=== PATIENT | female | born 1950 | race Caucasian/White ===

== ENCOUNTER 2024-08-17 09:09 | Outpatient (REF) | payer MEDICARE, SELFPAY ==
--- NOTE | ~2024-08-17 | XR_ITS ---
EXAMINATION: XR SHOULDER, RIGHT CLINICAL INFORMATION: M25.511 - Pain in right shoulder COMPARISON: None available. TECHNIQUE: Two views of the right shoulder. FINDINGS: No acute cortical disruption or malalignment. No lytic or blastic lesions. XR/XR shoulder RT min 2V IMPRESSION: No acute fracture or dislocation. Electronically signed by: Charles Chaudhary MD 08/17/2024 12:47 PM EDT
--- OUTSIDE RECORDS SUMMARY | 2024-08-18 09:46 | XMS_ITS | Data Portability ---
Author Organization [place] - [facility], [facility] Address [address] [place] [address] Care Team Providers Care Stabber Name Role Phone DAVEY FLORES Primary Care Provider LYNNE MCKEON Primary Care Provider Assessment Encounter Date Assessment Date Assessment LastModified by Organization Details LastModified Time 04/17/2021 04/17/2021 Bilateral hip greater trochanteric bursitis Bilateral bursa corticosteroid injections Weightbearing as tolerated HEP, no real improvement with PT Follow-up PRN In total, reviewing the patient's records, reviewing imaging, examining and evaluating the patient, coordinating her care encompass 31 minutes. [email or web address] Not available 04/17/2021 11:56:09 07/17/2021 07/17/2021 Bilateral hip greater trochanteric bursitis Bilateral bursa corticosteroid injections Weightbearing as tolerated HEP, no real improvement with PT Follow-up in 3 mos In total, reviewing the patient's records, reviewing imaging, examining and evaluating the patient, coordinating her care encompass 31 minutes. [email or web address] Not available 07/17/2021 11:33:52 10/02/2021 10/02/2021 Bilateral hip greater trochanteric bursitis L Hip GWYN XR L hip, [facility], 09/25/21 Mild osteoarthritic changes of femoroacetabular joint, no fracture, no dislocation, no osseous abnormalities. I personally interpreted the imaging and reviewed the radiology report Bilateral bursa corticosteroid injections Weightbearing as tolerated HEP, no real improvement with PT Follow-up in 3 mos If no improvement in impingement symptoms over next two months, instructed to follow-up with Dr. Brown for further evaluation. She may continue returning to [place] for bilateral GT bursa injections. [email or web address] Not available 10/02/2021 11:39:42 11/21/2021 11/21/2021 The patient presents to the office today with symptoms consistent with left hip trochanteric bursitis. We offered and proceeded with injecting hip troch bursa which the patient tolerated well. We will see the patient back in the office as needed. If there are any problems or concerns, the patient may contact our office She may return for a hip joint injection with Dr. Villalta if her pain continues [email or web address] Not available 11/21/2021 13:26:01 11/27/2021 11/27/2021 Hip osteoarthritis. Imaging and\or evaluation reviewed. Progressive treatment plan initiated conservatively of medication \ therapy \ surgery as appropriate. Not available 11/27/2021 14:57:37 Plan of Treatment Reminders Order Date Submit Date Provider Last Modified By Organization Details Last Modified Time Details Appointments None record ed. Lab None record ed. Referral None record ed. Procedures None record ed. Surgeries None record ed. Imaging None record ed. Medication Orders None record ed. Patient TargetsNo targets recorded. Patient Instructions Encounter Date Encounter Id Patient Instructions Last Modified By Organization Details Last Modified Time 04/17/2021 [id number] hip pain: care instructions Not available 04/17/2021 12:47:36 learning about healthy weight [email or web address] Not available 04/17/2021 12:47:36 07/17/2021 [id number] hip pain: care instructions [email or web address] Not available 07/17/2021 11:33:53 learning about healthy weight [email or web address] Not available 07/17/2021 11:33:53 10/02/2021 [id number] hip pain: care instructions [email or web address] Not available 10/02/2021 11:40:10 learning about healthy weight [email or web address] Not available 10/02/2021 11:40:10 11/27/2021 [id number] hip arthritis: care instructions Not available 11/27/2021 14:58:13 osteoarthritis: care instructions Not available 11/27/2021 14:58:13 Reason for Referral None Reported. Problems Name Problem SNOMED Code Status Onset Date Resolution Date Notes Provider Name and Address Organization Details Recorded Time Hip pain 78777403 Active Abigail cunningham, [place] - [facility] 07/20/2019 15:27:10 Problem Notes None recorded. Procedures Surgical History Date Name Laterality Status Provider Name and Address Organization Details Recorded Time [facility] Corticosteroid Injection [place] [address], [place], [address], [facility] 11/27/2021 14:57:28 [facility] Corticosteroid Injection General completed Vinod Brown D.O. [address], [place], [address] 11/21/2021 13:23:54 [facility] Advance Care Planning completed Santiago Vazquez [facility] 11/21/2021 13:15:59 [facility] Corticosteroid Injection General completed GIOVANNA FARRAR [address], [place], [address], [facility] 10/02/2021 11:40:35 [facility] Advance Care Planning completed Yamilex Cole [facility] 10/02/2021 10:50:37 [facility] Corticosteroid Injection General completed GIOVANNA FARRAR [address], [place], [address], [facility] 07/17/2021 11:33:26 022 [facility] Advance Care Planning completed Yamilex Cole [facility] 07/17/2021 11:22:32 [facility] Corticosteroid Injection [place] [address], [place], [address], [facility] 04/19/2021 10:30:39 [facility] Advance Care Planning completed Sana Bermudez [facility] 04/17/2021 11:38:42 09/01/2 021 [facility] Corticosteroid Injection [place] [address], [place], [address], [facility] 01/09/2021 10:21:18 021 [facility] Corticosteroid Injection [place] [address],[place], [address] 09/28/2020 11:45:59 021 [facility] Corticosteroid Injection [place] [address], [place], [address] 07/06/2020 11:59:45 020 [facility] Corticosteroid Injection [place] [address],[place], [address] 04/03/2020 13:16:56 020 [facility] Corticosteroid Injection [place] [address],[place], [address], [facility] 07/20/2019 14:07:41 Appendectomy completed Not Available [employer] 12:55:38 Orthopedic Surgery completed Not Available [employer] 11/21/2021 12:55:38 Gallbladder Surgery completed Not Available [employer] 11/21/2021 12:55:38 Hysterectomy completed Not Available [employer] 12:55:38 cholecystectomy completed Abigail Narvaez [facility] 07/20/2019 15:47:32 Imaging Results None recorded. Procedure Notes None recorded. Medical Equipment None Reported. Allergies Allergen ID Allergen Name Allergen Category Reaction Reaction Severity Criticality Documentation Date Start Date Code Code System Note Provider Name and Address Organization Details Recorded Time 662468 hydrocodo ne Not available rash Not available Not available 07/20/2019 5489 RxNorm Not Available Not Available Not Available Medications Name Sig Start Date Stop Date Status Note LastModified by Organization Details LastModified Time amoxicillin 500 mg capsule TAKE 2 CAPSULES BY MOUTH EVERY 12 HOURS WITH FOOD FOR 10 DAYS active Not Available Not Available Not Available atorvastatin 40 mg tablet TAKE 1 TABLET BY MOUTH ONCE DAILY active Not Available Not Available No t Available terconazole 0.4 % vaginal cream INSERT 1 APPLICATORF UL VAGINALLY ONCE DAILY FOR 7 DAYS active Not Available Not Available N ot Available atorvastatin 20 mg tablet active Not Available Not Available Not Available trazodone 50 mg tablet TAKE 1 2 (ONE HALF) TABLET BY MOUTH ONCE DAILY AT BEDTIME active Not Available Not Available No t Available pravastatin 40 mg tablet TAKE 1 TABLET BY MOUTH ONCE DAILY active Not Available Not Available No t Available Lidocaine Viscous 2 % mucosal solution SWISH AND SPIT 15 ML BY MOUTH THREE TIMES DAILY NEEDED FOR 3 DAYS FOR SORE THROAT active Not Available Not Available Not Available atenolol 25 mg tablet active Not Available Not Available No t Available triamcinolon e acetonide 0.5 % topical ointment APPLY A THIN LAYER TO THE AFFECTED AREA(S) BY TOPICAL ROUTE 2 TIMES PER DAY active Not Available Not Available No t Available ciprofloxaci n 250 mg tablet active Not Available Not Available Not Available sulfamethoxa zole 800 mg-trimethop rim 160 mg tablet active Not Available Not Available Not Available TobraDex 0.3 %-0.1 % eye ointment active Not Available Not Available Not Available alprazolam 0.25 mg tablet TAKE 1 TABLET BY MOUTH ONCE DAILY active Not Available Not Available No t Available cephalexin 500 mg capsule active Not Available Not Available Not Available omeprazole 20 mg capsule,mary yed release active Not Available Not Available Not Available benazepril 20 mg tablet TAKE 1 TABLET BY MOUTH ONCE DAILY active Not Available Not Available No t Available atenolol 50 mg tablet TAKE 1 TABLET BY MOUTH ONCE DAILY active Not Available Not Available No t Available nitrofuranto in monohydrate/ macrocrystal s 100 mg capsule TAKE 1 CAPSULE BY MOUTH TWICE DAILY FOR 7 DAYS active Not Available Not Available No t Available Fluzone High-Dose Quad 2020-21 (PF) 240 mcg/0.7 mL IM syringe PHARMACY ADMINISTERE D active Not Available Not Available No t Available Vitals Date Recorded Body height Body mass index (BMI) Body weight Provider Name and Address Organization Details Last Updated DateTime 04/17/2021 177.8 cm 27.3 kg/m2 81281.55 g Sana Gonzalez [facility] 04/17/2021 11:35:34 Date Recorded Body height Body mass index (BMI) Body weight Provider Name and Address Organization Details Last Updated DateTime 07/17/2021 177.8 cm 27.3 kg/m2 82751.55 g Yamilex Cole [facility] [employer] [facility] 07/17/2021 11:22:08 Date Recorded Body height Body mass index (BMI) Body weight Provider Name and Address Organization Details Last Updated DateTime 10/02/2021 177.8 cm 27.3 kg/m2 46259.55 g Yamilex Cole [facility] 10/02/2021 10:50:05 Date Recorded Body height Body mass index (BMI) Body weight Provider Name and Address Organization Details Last Updated DateTime 11/21/2021 177.8 cm 27.3 kg/m2 53994.55 g Santiago Vazquez [facility] [employer] [facility] 11/21/2021 13:11:54 Social History Question Answer Notes LastModified by Organizat ion Details LastModified Time Tobacco Smoking Status Former Smoker Abigail cunningham [place] - [facility] 07/20/2019 15:45:21 Do You Or Have You Ever Used E-cigarettes Or Vape? Never Used Electronic Cigarettes Information not available 07/20/2019 I Have Fallen 2 Or More Times In The Past Year. No Information not available 04/03/2020 I Had A Fall That Resulted In A Broken Bone In The Past Year. No Information not available 04/03/2020 Falls Plan Of Care Documented. No Information not available 04/03/2020 Documentation Of Medical Reasons For No Plan Of Care For Falls. Yes Information not available 04/03/2020 Falls Plan Of Care Not Documented, Reason Not Otherwise Specified. No Information not available 04/03/2020 Reason For No Plan Of Care For Falls Has Not Had 2 Or More Falls Or Fall With An Injury In The Past Year Information not available 04/03/2020 Smoking - Former Smokers -quit Date 05/11/1979 Information not available 04/03/2020 What Was The Date Of Your Most Recent Tobacco Screening? 10/02/2021 [email or web address] Information not available 10/02/2021 Do You Or Have You Ever Used Smokeless Tobacco? Never Used Smokeless Tobacco [email or web address] Information not available 07/20/2019 How Much Tobacco Do You Smoke? 1 PPD Information not available 04/03/2020 How Many Years Have You Smoked Tobacco? 15 Information not available 04/03/2020 Do You Or Have You Ever Used Any Other Forms Of Tobacco Or Nicotine? No Information not available 01/09/2021 Sex: Unknown Functional Status None recorded. Mental Status None recorded. Family History Relationship Description Onset Age of this Age Resolved Age Notes LastModified by Organization Details LastModified Time Maternal Grandmother Arthritis [email or web address] Not available 11/09 14:54:40 Mother Arthritis [email or web address] Not available 11/27/2021 14:54:40 Mother Hypertensive disorder [email or web address] Not available 07/19 15:44:07 Mother Hypercholest erolemia [email or web address] Not available 2021 14:54:40 Mother Gout [email or web address] Not available 14:54:40 Father Alzheimer's disease [email or web address] Not available 2021 14:54:40 Medical History Condition Response Coronary Artery Disease N HIV or AIDS N Anxiety/Depression N Gout N Other N Atrial Fibrillation N Thyroid Disease N Leukemia N Kidney Stones N Hyperthyroidism N MRSA N Blood Transfusion N Emphysema N Head Trauma/Injury N Hernia N Asthma/Lung Disease N COPD N Hypothyroidism N Pacemaker N Edema N Heart Attack (TN)/ Congestive Heart Fail ure (CHF) N Immune Deficiency N Alcoholism N Varicose Veins N Muscle, Joint, or Bone Problems N Obesity N Arthritis N Serious Illness or Injuries N Carpal Tunnel N Huynh Bite N Cancer N Stroke N Neck Injury N Polio N High Cholesterol Y Neurologic Disorder N Liver Disease N Organ Transplant N Rheumatoid Arthritis N Fractures N Foot Deformity N Fibromyalgia N Kidney Disease N Malignant Hyperthermia N Dyslipidemia N Bowel Disease N Spinal Stenosis N Scoliosis N Parkinson's Disease N Gallbladder Disease Y Artificial Joints N GERD/Ulcers N Anemia N Back Pain N Diabetes N Bleeding Disorder N Seizures/Epilepsy N Headaches or Migraines N Chronic Sinus/Rhinitis N Tuberculosis N Blood Clot/Deep Vein Thrombosis/PE N Urinary Tract Infection Y Cataract N Allergies N Substance Abuse N Peripheral Vascular Disease N Sleep Apnea N Hepatitis N Neuropathy N Hypertension Y Have you ever had a reaction to ANESTHES IA N Osteoporosis N Gynecological HistoryNo gynecological history recorded. Obstetrics History GPAL:G 0 P 0 0 0 0 Past Encounters Encounter ID Performer Location Encounter Start Date Encounter Closed Date Diagnosis/Indication Diagnosis SNOMED-CT Code Diagnosis ICD10 Code Diagnosis Note [id number] Abigail Narvaez [facility] [address] [place] [address] [place] [address] 07/20/2019 13:44:36 07/20/2019 15:54:45 Greater trochanteric pain syndrome 2391910 M70.60 [id number] Jey Escobar MD [facility] [address] [place] [address] [place] [address] 04/03/2020 12:27:16 04/03/2020 13:17:33 Hip pain 55253334 M25.559 Increased body mass index 58044710 E66.3 Greater tr ochanteric pain syndrome 7181098 M70.60 [id number] Jey Escobar MD [facility] [address] [place] [address] [place] [address] 07/06/2020 11:35:54 07/06/2020 12:19:03 Hip pain 96882420 M25.559 Increased body mass index 53960170 E66.3 Bursitis of hip 73640617 M70.70 [id number] Jey Escobar MD [facility] [address] [place] [address] [place] [address] 09/28/2020 11:11:14 09/28/2020 11:48:41 Hip pain 82366777 M25.559 Increased body mass index 45834215 E66.3 Bursitis of hip 08566636 M70.70 [id number] Jey Escobar MD [facility] [address] [place] [address] [place] [address] 01/09/2021 10:10:15 01/09/2021 10:25:44 Hip pain 75581290 M25.559 Increased body mass index 23295039 E66.3 Bursitis of hip 73978052 M70.70 [id number] Jey Escobar MD [facility] [address] [place] [address] [place] [address] 04/17/2021 11:21:37 04/17/2021 12:04:00 Hip pain 64139421 M25.559 Increased body mass index 61726316 E66.3 Bursitis of hip 18569055 M70.70 [id number] Jey Esocbar MD [facility] [address] [place] [address] [facility] [address] 07/17/2021 11:01:51 07/17/2021 12:29:19 Hip pain 76647833 M25.559 Increased body mass index 48538304 E66.3 Bursitis of hip 85870114 M70.70 [id number] Jey Escobar MD [facility] [address] [place] [address], [place] [address] 10/02/2021 10:29:44 10/02/2021 11:48:56 Hip pain 70235091 M25.559 Increased body mass index 43783023 E66.3 Bursitis of hip 89675170 M70.70 Femoral ac etabular impingement 664501834 M25.498 [id number] Vinod Brown D.O. [facility] [address] [place] [address], [place] [address] 11/21/2021 12:55:34 11/21/2021 13:44:16 Osteoarthritis of left hip joint 1907017188 00625 M16.12 Trochanter ic bursitis of left hip 6596278144 40500 M70.62 [id number] Sudarshan Calles II, MD [facility] [address] [place] [address], [place] [address] 11/27/2021 14:54:37 11/27/2021 21:30:49 Osteoarthritis of hip 006749216 M16.12 [id number] [facility] [address] [place] [address], [place] [address] 07/20/2019 00:00:00 07/20/2019 15:49:54 [id number] [facility] [address] [place] [address], [place] [address] 04/03/2020 00:00:00 04/03/2020 13:17:31 [id number] [facility] [address] [place] [address], [place] [address] 07/06/2020 00:00:00 07/06/2020 12:02:33 [id number] [facility] [address] [place] [address] 09/28/2020 00:00:00 09/28/2020 11:47:02 [id number] [facility] [address] [facility] [place] [address] 01/09/2021 00:00:00 01/09/2021 10:21:55 [id number] [facility] [address] [place] [address] [facility] [address] 04/17/2021 00:00:00 04/19/2021 10:31:07 [id number] [facility] [address] [place] [address] [facility] [address] 07/17/2021 00:00:00 07/17/2021 12:20:44 [id number] [facility] [address] [place] [address] [facility] [address] 10/02/2021 00:00:00 10/02/2021 11:41:05 [id number] [facility] [address] [place] [address] [facility] [address] 11/21/2021 00:00:00 11/21/2021 13:28:42 [id number] [facility] [address] [place] [address] [facility] [address] 11/27/2021 00:00:00 11/27/2021 15:22:31 Health Concerns Section Related Observation LastModified by Organization Detai ls LastModified Time None Recorded Concern Status LastModified by Organization Details LastModified Time None Recorded Advance Directives Directive None Recorded Payers Encounter Date Sequence Insurance Name Policy Number Policy Moreno Covered Member ID Moreno Member ID Guarantor Name 04/17/2021 1 [place] Katarzyna Buck [id number] Katarzyna Buck 04/17/2021 2 [employer] OPTIONS (MEDICARE SUPPLEMENT) Katarzyna Buck [id number] Katarzyna Bukc 07/17/2021 1 [place] Katarzyna Buck [id number] Katarzyna Buck 07/17/2021 2 [employer] OPTIONS (MEDICARE SUPPLEMENT) Katarzyna Buck [id number] Katarzyna Buck 10/02/2021 1 [place] Katarzyna Buck [id number] Katarzyna Buck 10/02/2021 2 [employer] OPTIONS (MEDICARE SUPPLEMENT) Katarzyna Buck [id number] Katarzyna Buck 11/21/2021 1 [place] Katarzyna Buck [id number] Katarzyna Buck 11/21/2021 2 [employer] OPTIONS (MEDICARE SUPPLEMENT) Katarzyna Buck [id number] Katarzyna Buck 11/27/2021 1 [place] Katarzyna Buck [id number] Katarzyna Buck 11/27/2021 2 [employer] OPTIONS (MEDICARE SUPPLEMENT) Katarzyna Buck [id number] Katarzyna Buck Notes Date Note Type Note Provider Name and Address Organization Details Recorded Time 04/17/2021 text/html Established patient, Katarzyna Buck, presents today for follow up bilateral hips. Patient states the injections she received on 01/09/21 lasted approximately 2 months before her pain gradually returned. She reports she is very active and has been unable to attend [facility] due to pain. [place] would [place] [address], [place], [address], [facility] - [facility] 04/19/2021 10:31:07 07/17/2021 text/html Established patient, Katarzyna Buck, presents today for follow up bilateral hips. Patient states the injections she received on 04/17/21 lasted until a few weeks ago before her pain gradually returned. She would [place] [address], [place], [address], [facility] - [facility] 07/17/2021 12:20:44 10/02/2021 text/html Established patient,Katarzyna Buck , presents today for follow up for B/L hips. Patient last received a cortisone injection 07/17/21 and it provided releif until recently. Unrelated to her chronic bursitis, she was doing Milena exercise and it aggravated left hip and radiating to the left groin. Interested in receiving additional bilateral steroid injections. Patient saw PCP and had Xrays done at [facility], [place] 09/25/21 GIOVANNA FARRAR [address], [place], [address], [facility] - [facility] 10/02/2021 11:41:05 11/21/2021 text/html New patient, Katarzyna Buck, presents today with complaint of left hip pain ongoing since a Milena injury 09/08/2021. Pain is described as stabbing/aching and is located in the left hip with some radiation beyond surrounding area and is rated 9/10 in severity. Symptoms are exacerbated by activity and is relieved by rest. Patient has tried rest, ice, heat, lidocain patched with some relief. Patient is a referral from Dr. Escobar. Injury Overview?How did this problem occur?unknownPain Information?Area(s)of the pain. ?Hip(s) ?Please select the side the patient experiences pain ?Hip(s) - Left ?How long have you had this pain?Months ?Number of months ?2 ?Select the option(s) that best describe your pain. ?Aching ?Sharp ?Stabbing ?Please identify how much pain you experience while RESTING ?7 ?Items that increase or decrease the patient's pain. ?Heat - No Change ?Cold - No Change ?Lying Down - Decreases Pain ?Bending Over - No Change ?Over the counter medication - Decreases Pain ?Rest - Decreases Pain ?Activity - Increases Pain ?Sitting - Decreases Pain ?Standing - Increases Pain ?Walking - Increases Pain ?Running - Not Applicable ?Elevating - No Change ?Symptoms associated with your pain. ?Buckling episodes ?Tingling ?Is the patient experiencing any radiating pain?No Imported from [facility] on 11/21/2021 iVnod Brown D[address], [place], [address], [facility] - [facility] 11/21/2021 13:28:42 11/27/2021 text/html cont hip [place] [address], [place], [address], [facility] - [facility] 11/27/2021 15:22:31 OBGyn Episode No OBEpisode recorded.
--- OUTSIDE RECORDS SUMMARY | 2024-08-18 09:46 | XMS_ITS | Clinical Summary ---
Author Organization [facility] Address [address] [place] [address] Care Team Providers Care Detail Sergeant Name Role Phone Unavailable Primary Care Provider [...] this topic Katarzyna Buck Personal/Family Self 1950 [facility] [address] [place] [address]
--- OUTSIDE RECORDS SUMMARY | 2024-08-18 09:47 | XMS_ITS | Clinical Summary ---
Author Organization [facility] it Address [address] [place] [address] Care Team Providers Care Golf Ball Cover Treater Name Role Phone Mary Ocampo MD Primary Care Provider [phone] Surgical History Surgery Date Site/Laterality Comments OTHER SURGICAL HISTORY 01/10/2022 Left PROCEDURE: [place] UNLISTED PROCEDURE PELVIS/HIP JOINT; COMMENT: at [facility]. Medical History Medical History Date Comments Primary [...] Annual BMP Blood Test 06/09/2023 COVID-19 Vaccine (1 - 2023-2 5 season) 2024 Influenza Vaccine (Season Ended) 2025 HIB Vaccines Aged Out No longer eligi [...] Documents on File Type Date Recorded Patient Biologics Specialist Expl anation Health Care Decision (hx) 01/14/2022 AD OLEA DIRECTIVE Health Care Decision (hx) 01/14/2022 AD OLEA DIRECTIVE Care Teams Golf Ball Cover Treater Relationship Specialty Start Date End Date Mary Ocampo MD [address] [place] [address] PCP - General 02/11/22
--- OUTSIDE RECORDS SUMMARY | 2024-08-18 09:47 | XMS_ITS | Data Portability ---
Author Organization [place] [id number] - Address [address] [address] Assessment No assessment recorded. Plan of Treatment Reminders Order Date Submit Date Provider Last Modified By Organization Details Last Modified Time Details Appointments None record ed. Lab None record ed. Referral None record ed. Procedures None record ed. Surgeries None record ed. Imaging None record ed. Medication Orders None record ed. Patient TargetsNo targets recorded. Patient InstructionsNo instructions recorded. Reason for Referral None Reported. Problems Name Problem SNOMED Code Status Onset Date Resolution Date Notes Provider Name and Address Organization Details Recorded Time Hip pain [id number] Active Not Available [facility] 02/18/2023 22:01:12 Problem Notes None recorded. Procedures Surgical History Date Name Laterality Status Provider Name and Address Organization Details Recorded Time cholecystectomy completed Not Available [facility] 02/18/2023 22:00:19 [facility]end[facility] completed [facility] 02/18/2023 22:00:19 Orthopedic Surgery completed Not Available [facility] 02/18/2023 22:00:19 Gallbladder Surgery completed Not Available [facility] 02/18/2023 22:00:19 Hysterectomy completed [facility] 02/18/2023 22:00:19 Imaging Results None recorded. Procedure Notes None recorded. Medical Equipment None Reported. Allergies Allergen ID Allergen Name Allergen Category Reaction Reaction Severity Criticality Documentation Date Start Date Code Code System Note Provider Name and Address Organization Details Recorded Time 454994 hydrocodo ne Not available rash Not available Not available 02/18/2023 5489 RxNorm Not Available Not Available Not [...] Available No t Available Fluzone High-Dose Quad 2020- (PF) 240 mcg/0.7 mL IM syringe [facility] active Not Available Not Available No t Available Vitals Date Recorded Body mass index (BMI) Body height Body weight Provider Name and Address Organization Details Last Updated DateTime 04/17/2021 27.3 kg/m2 177.8 cm 53514.55 g Not Available [facility] 02/18/2023 22:00:43 Date Recorded Body mass index (BMI) Body height Body weight Provider Name and Address Organization Details Last Updated DateTime 07/17/2021 27.3 kg/m2 177.8 cm 14805.55 g Not Available [facility] 02/18/2023 22:00:43 Date Recorded Body mass index (BMI) Body height Body weight Provider Name and Address Organization Details Last Updated DateTime 10/02/2021 27.3 kg/m2 177.8 cm 49796.55 g Not Available [facility] 02/18/2023 22:00:44 Date Recorded Body mass index (BMI) Body height Body weight Provider Name and Address Organization Details Last Updated DateTime 11/21/2021 27.3 kg/m2 177.8 cm 32412.55 g Not Available [facility] 02/18/2023 22:00:44 Social History Question Answer Notes LastModified by Heckylizat ion Details LastModified Time Tobacco Smoking Status Former Smoker Not Available [facility] 02/18/2023 22:02:26 Do You Or Have You Ever Used E-cigarettes Or Vape? Never Used Electronic Cigarettes [id number] Information not available 02/18/2023 I Have Fallen 2 Or More Times In The Past Year. No MIGRATION.[id number] 7032 Information not available 02/18/2023 I Had A Fall That Resulted In A Broken Bone In The Past Year. No MIGRATION.[id number] 0077 Information not available 02/18/2023 Falls Plan Of Care Documented. No MIGRATION.757154 0011 Information not available 02/18/2023 Documentation Of Medical Reasons For No Plan Of Care For Falls. Yes MIGRATION.[id number] 0075 Information not available 02/18/2023 Falls Plan Of Care Not Documented, Reason Not Otherwise Specified. No MIGRATION.123803 5315 Information not available 02/18/2023 Reason For No Plan Of Care For Falls Has Not Had 2 Or More Falls Or Fall With An Injury In The Past Year MIGRATION.645626 1731 Information not available 02/18/2023 Smoking - Former Smokers -quit Date 05/11/1979 MIGRATION.[id number] 4668 Information not available 02/18/2023 What Was The Date Of Your Most Recent Tobacco Screening? 10/02/2021 MIGRATION.172423 3044 Information not available 02/18/2023 Do You Or Have You Ever Used Smokeless Tobacco? Never Used Smokeless Tobacco MIGRATION.982847 5530 Information not available 02/18/2023 How Much Tobacco Do You Smoke? 1 PPD MIGRATION.397367 3936 Information not available 02/18/2023 How Many Years Have You Smoked Tobacco? 15 MIGRATION.333964 3301 Information not available 02/18/2023 Do You Or Have You Ever Used Any Other Forms Of Tobacco Or Nicotine? No MIGRATION.842177 6353 Information not available 02/18/2023 Sex: Unknown Functional Status None recorded. Mental Status None recorded. Family History Relationship Description Onset Age of this Age Resolved Age Notes LastModified by Organization Details LastModified Time Maternal Grandmother Arthritis [id number] Not available 02/18/2023 22:02:41 Mother Arthritis MIGRATION.776 [id number] Not available 02/18/2023 22:02:41 Mother Hypertensive disorder MIGRATION.367 [id number] Not available 02/18/2023 22:02:42 Mother Hypercholest erolemia MIGRATION.106 [id number] Not available 02/18/2023 22:02:42 Mother Gout MIGRATION.[id number] Not available 02/18/2023 22:02:42 Father Alzheimer's disease MIGRATION.110 [id number] Not available 02/18/2023 22:02:42 Medical History Condition Response HIV or AIDS N Coronary Artery Disease N Anxiety/Depression N Gout N Thyroid Disease N Atrial Fibrillation N Leukemia N Kidney Stones N Hyperthyroidism N Blood Transfusion N MRSA N Asthma/Lung Disease N Hypothyroidism N Heart Attack (IA)/ Congestive Heart Fail ure (CHF) N Immune Deficiency N Alcoholism N Obesity N Arthritis N Carpal Tunnel N Cancer N Stroke N High Cholesterol Y Liver Disease N Rheumatoid Arthritis N Fractures N Kidney Disease N Malignant Hyperthermia N Bowel Disease N Spinal Stenosis N Scoliosis N Parkinson's Disease N Gallbladder Disease Y GERD/Ulcers N Anemia N Diabetes N Bleeding Disorder N Seizures/Epilepsy N Headaches or Migraines N Chronic Sinus/Rhinitis N Tuberculosis N Blood Clot/Deep Vein Thrombosis/PE N Urinary Tract Infection Y Cataract N Allergies N Substance Abuse N Peripheral Vascular Disease N Hepatitis N Hypertension Y Have you ever had a reaction to ANESTHES [place] N Osteoporosis N Gynecological HistoryNo gynecological history recorded. Obstetrics History GPAL:G 0 P 0 0 0 0 Past Encounters Encounter ID Performer Location Encounter Start Date Encounter Closed Date Diagnosis/Indication Diagnosis SNOMED-CT Code Diagnosis ICD10 Code Diagnosis Note [id number] Abigail Narvaez [facility] [address] [place] [address] [place] [address] 07/20/2019 13:44:36 07/20/2019 15:54:45 [id number] Jey Escobar MD [facility] [address] [place] [address] [place] [address] 04/03/2020 12:27:16 04/03/2020 13:17:33 [id number] Jey Escobar MD [facility] [address] [place] [address] [place] [address] 07/06/2020 11:35:54 07/06/2020 12:19:03 [id number] Jey Escobar MD [facility] [address] [place] [address] [place] [address] 09/28/2020 11:11:14 09/28/2020 11:48:41 [id number] Jey Escobar MD [facility] [address] [place] [address] [place] [address] 01/09/2021 10:10:15 01/09/2021 10:25:44 [id number] Jey Escobar MD [facility] [address] [place] [address] [place] [address] 04/17/2021 11:21:37 04/17/2021 12:04:00 [id number] Jey Escobar MD [facility] [address] [place] [address] [place] [address] 07/17/2021 11:01:51 07/17/2021 12:29:19 [id number] Jey Escobar MD [facility] [address] [place] [address] [place] [address] 10/02/2021 10:29:44 10/02/2021 11:48:56 [id number] Vinod Brown D.O. [facility] [address] [place] [address] [place] [address] 11/21/2021 12:55:34 11/21/2021 13:44:16 [id number] Sudarshan Calles II, MD [facility] [address] [place] [address] [place] [address] 11/27/2021 14:54:37 11/27/2021 21:30:49 [id number] [facility] [address] [place] [address] 07/20/2019 00:00:00 07/20/2019 15:49:54 [id number] [facility] [address] [place] [address] 04/03/2020 00:00:00 04/03/2020 13:17:31 [id number] [facility] [address] [facility] [place] [address] 07/06/2020 00:00:00 07/06/2020 12:02:33 [id number] [facility] [address] [facility] [place] [address] 09/28/2020 00:00:00 09/28/2020 11:47:02 [id number] [facility] [address] [place] [address] 01/09/2021 00:00:00 01/09/2021 10:21:55 [id number] [facility] [address] [place] [address] 04/17/2021 00:00:00 04/19/2021 10:31:07 [id number] [facility] [address] [place] [address] 07/17/2021 00:00:00 07/17/2021 12:20:44 [id number] [facility] [place] [address] 10/02/2021 00:00:00 10/02/2021 11:41:05 [id number] [facility] [address] [place] [address] [place] [address] 11/21/2021 00:00:00 11/21/2021 13:28:42 [id number] [facility] [address] [place] [address] 11/27/2021 00:00:00 11/27/2021 15:22:31 Health Concerns Section Related Observation LastModified by Organization Detai ls LastModified Time None Recorded Concern Status LastModified by Organization Details LastModified Time None Recorded Advance Directives Directive None Recorded Payers None recorded. OBGyn Episode No OBEpisode recorded.
--- OUTSIDE RECORDS SUMMARY | 2024-08-18 09:47 | XMS_ITS | Data Portability ---
Author Organization [place] [facility] Kaye Fisher AONE Eidson Address [address] [facility] [address] [place] [address] Care Team Providers Care Linseed Oil Boiler Name Role Phone VENKAT LI Primary Care Provider [phone] VENKAT LI Primary Care Provider Assessment Encounter Date Assessment Date Assessment LastModified by Organization Details LastModified Time 11/21/2022 11/21/2022 Pleasant 72-year-old female status post left total hip arthroplasty 01/10/2022 who is doing well clinically. She will continue with her stretching exercise regimen.. I will see her back close to her anniversary date to see if she is progressing. She knows to continue antibiotic prophylaxis until the 2-year sridhar after her surgery. After that her dentist can take over management if they deem necessary. Should she have any questions or concerns she should contact my office. Patient agrees with the above-noted plan. Indirect care and treatment in conjunction with Dr. Wheat Additional treatment plan discussed with the patient in detail included the following; - Provider focused nonsteroidal anti-inflammator y regimen (discussed were the pros, cons, benefits and risks as well as any black box warnings) in patients over 60 years old they should be very cautious in taking these medications due to potential decreased kidney function and or elevated blood pressure. - Analgesic pain medication for pain suppression (discussed were the pros, cons, benefits and risks as well as any black box warnings) - The use of topical pain relieving medication were discussed - The use of ice to decrease inflammation and pain - The use of assistive ambulatory devices for ambulation and fall prevention - Formal specific guided physical therapy program I reviewed my findings at length with the patient today. ? ? ?We discussed the nature and etiology of this problem along with current treatment options. We discussed the expected course and outcomes and what to expect. We also discussed risks and benefits. ? ? ? All of their questions were answered today, and there was exhibited understanding and comprehension of all that was discussed. Time Spent: 10 minutes were spent reviewing previous imaging and charting. ? ? ?10 minutes were spent obtaining patient history. ? ? ?5 minutes were spent on physical exam. ? ? ?5? ? ?minutes were spent explaining diagnosis and assessment. Today's documentation was made using voice recognition software. This note may contain grammatical errors secondary to the software. 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 She opted for cortisone injection at today's visit. After verbal consent was granted. The procedure was carried out the left shoulder she tolerated this well with notable improvement. Aftercare instructions were discussed in detail. I would like to reevaluate her in 6 weeks. If her symptoms not improve however she is to contact my office. She is in agreement with the plan. She would like to hold off on formal physical therapy at this point. Patient was seen and evaluated by Kaya Francis PA-C in indirect conjuction with Documenting Provider: Javier Hernandez MD . He/She agrees with history, physical examination, tests/diagnostic imaging, and treatment plan. Additional treatment plan discussed with the patient (only initiated if in boldface font) otherwise not applicable. Treatment may include the following; - Provider focused nonsteroidal anti-inflammator y regimen (discussed were the pros, cons, benefits and risks as well as any black box warnings) in patients over 60 years old they should be very cautious in taking these medications due to potential decreased kidney function and or elevated blood pressure. - Analgesic pain medication for pain suppression (discussed were the pros, cons, benefits and risks as well as any black box warnings) - The use of topical pain relieving medication were discussed - The use of ice to decrease inflammation and pain - The use of assistive ambulatory devices for ambulation and fall prevention - Formal specific guided physical therapy program I reviewed my findings at length with the patient today. ? ? ?We discussed the nature and etiology of this problem along with current treatment options. We discussed the expected course and outcomes and what to expect. We also discussed risks and benefits. ? ? ? All of their questions were answered today, and there was exhibited understanding and comprehension of all that was discussed. Time Spent: 10 minutes were spent reviewing previous imaging and charting. ? ? ?10 minutes were spent obtaining patient history. ? ? ?5 minutes were spent on physical exam. ? ? ?5? ? ?minutes were spent explaining diagnosis and assessment. Today's documentation was made using voice recognition software. This note may contain grammatical errors secondary to the software. Not available 03/19/2023 12:06:31 Plan of Treatment Reminders Order Date Submit Date Provider Last Modified By Organization Details Last Modified Time Details Appointments None recorded. Lab None recorded. Referral None recorded. Procedures None recorded. Surgeries None recorded. Imaging XR, shoulder, 2 or more view 2022 [facility], [address], [place] [address], [place], [address], 3 12:25:37 Medication Orders Kenalog 40 mg/mL suspension for injection [address], [address] [place], [address], 3 15:47:01 lidocaine (PF) 10 mg/mL (1 %) injection solution [address], [address] [place], [address], 3 15:47:03 bupivacaine HCl 0.5 % (5 mg/mL) injection solution [address], [address] [place], [address], 3 15:47:05 Patient TargetsNo targets recorded. Patient Instructions Encounter Date Encounter Id Patient Instructions Last Modified By Organization Details Last Modified Time 03/19/2023 [id number] You have been provided with a cortisone injection in order to reduce the pain and inflammation that you are experiencing. The injection consists of two medications. Cortisone (an anti-inflammatory that will take 48-72 hours to take effect) and Lidocaine (a numbing agent that will last 2-3 hours). Please note that not everyone will have a lasting response following the injection. PATIENT INSTRUCTIONS Once the Lidocaine wears off, you may have an increase in your pain. I recommend icing the affected area for 20 minutes 3-4 times per day. It is recommended that you refrain from any high level activities using the joint or limb that was injected for approximately 24-48 hours. Normal day-to-day activities are generally not a problem. POSSIBLE SIDE EFFECTS Individuals with dark complexions may experience some skin discoloration locally at the site of the injection. There is the possibility of an increase in discomfort within 48 hours following the injection. This is called a ? f lare? . To help minimize the chances of this, please see the post-injection instructions above. There is a less than 1% chance of an infection. If you notice any signs of infection (redness, warmth, drainage, fever greater than 100 degrees) please call our office or contact us through the portal [email or web address]. Not available 03/19/2023 12:06:47 X-rays at today' s visit reveals mild degenerative changes to the AC joint well-maintained glenohumeral joint, type III acromion. No acute bony abnormality. Not available 03/19/2023 12:04:40 Reason for Referral None Reported. Problems Name Problem SNOMED Code Status Onset Date Resolution Date Notes Provider Name and Address Organization Details Recorded Time Impingement syndrome of left shoulder region 5770840845902 04 Active 2022 KAYA FRANCIS PA-C [address], [place], [address], [place] [facility] 3 12:06:38 Problem Notes None recorded. Procedures Surgical History Date Name Laterality Status Provider Name and Address Organization Details Recorded Time 03/19/20 23 Shoulder Joint/Bursa Asp & Inj completed KAYA FRANCIS PA-C [address], [place], [address], [place] [facility] 03/19/2023 12:05:39 [facility] 14:53:28 [facility] 14:53:34 Gallbladder Surgery completed Nina [facility], [facility] 11/21/2022 14:53:41 excision of bunion [facility] 11/21/2022 14:53:46 Imaging Results None recorded. Procedure Notes None recorded. Medical Equipment None Reported. Allergies Allergen ID Allergen Name Allergen Category Reaction Reaction Severity Criticality Documentation Date Start Date Code Code System Note Provider Name and Address Organization Details Recorded Time 6224 hydrocodo ne Not available Not available Not available Not available 11/21/2022 5489 RxNorm Nina Piedra [facility], [facility] 14:50:35 Medications Name Sig Start Date Stop Date Status Note LastModified by Organization Details LastModified Time amoxicillin 500 mg capsule TAKE 4 TABLETS ONE HOUR PRIOR TO DENTAL PROCEDURE active Not Available Not Available No t Available atorvastati n 40 mg tablet TAKE 1 TABLET BY MOUTH EVERY DAY active Not Available Not Available No t Available amiodarone 200 mg tablet TAKE 1 TABLET BY MOUTH EVERY DAY 03/19 completed Not Available Not Available Not Available atenolol 100 mg tablet TAKE 1 TABLET BY MOUTH EVERY DAY 03/19 completed Not Available Not Available Not Available ondansetron HCl 4 mg tablet TAKE 1 TABLET BY MOUTH EVERY 8 HOURS NEEDED FOR NAUSEA AND VOMITING 03/19 completed Not Available Not Available Not Available bupivacaine HCl 0.5 % (5 mg/mL) injection solution Take 2 mL by injection route. 03/19 completed Not Available Not Available Not Available metronidazo le 500 mg tablet TAKE 1 TABLET BY MOOUT 3 TIMES A DAY THE DAY BEFORE SURGERY 1PM,2PM, AND 9PM 03/19 completed Not Available Not Available Not Available sulfamethox azole 800 mg-trimetho prim 160 mg tablet TAKE 1 TABLET BY MOUTH TWICE A DAY 03/19 completed Not Available Not Available Not Available peg-electro lyte solution 420 gram oral solution DRINK 240 ML BY MOUTH EVERY 10 MINUTES 03/19 completed Not Available Not Available Not Available aspirin 81 mg tablet,mary yed release TAKE 1 TABLET BY MOUTH TWICE DAILY 03/19 completed Not Available Not Available Not Available tramadol 50 mg tablet TAKE 1 TABLET BY MOUTH EVERY 8 HOURS NEEDED FOR PAIN 03/19 completed Not Available Not Available Not Available amoxicillin 500 mg tablet TAKE 4 TABLETS BY MOUTH ONE HOUR PRIOR TO DENTAL APPOINTME NT 03/19 completed Not Available Not Available Not Available levothyroxi ne 25 mcg tablet TAKE 1 TABLET BY MOUTH EVERY DAY 03/19 completed Not Available Not Available Not Available Kenalog 40 mg/mL suspension for injection Take 1 mL by injection route. 03/19 completed Not Available Not Available Not Available alprazolam 0.5 mg tablet Take 1 tablet 3 times a day by oral route. 03/19 completed Not Available Not Available Not Available hydromorpho ne 2 mg tablet TAKE 1 TO 2 TABLETS BY MOUTH EVERY 4 TO 6 HOURS NEEDED FOR SEVERE PAIN . DO NOT EXCEED 6 PER 24 HOURS SCALE 7-10 03/19 completed Not Available Not Available Not Available alprazolam 0.25 mg tablet TAKE 1 TABLET BY MOUTH ONCE DAILY 11/21 completed Not Available Not Available Not Available methocarbam ol 750 mg tablet TAKE 1 TABLET BY MOUTH THREE TIMES DAILY 03/19 completed Not Available Not Available Not Available oseltamivir 75 mg capsule TAKE 1 CAPSULE BY MOUTH TWICE DAILY FOR 5 DAYS FOR THE FLU 03/19 completed Not Available Not Available Not Available lisinopril 10 mg tablet TAKE 1 TABLET BY MOUTH EVERY DAY IN THE MORNING active Not Available Not Available No t Available metoprolol tartrate 50 mg tablet TAKE 1 TABLET BY MOUTH 2 TIMES DAILY FOR 180 DAYS. active Not Available Not Available No t Available gabapentin 300 mg capsule TAKE 1 CAPSULE BY MOUTH IN THE EVENING 03/19 completed Not Available Not Available Not Available benazepril 20 mg tablet TAKE 1 TABLET BY MOUTH ONCE DAILY 03/19 completed Not Available Not Available Not Available hydroxyzine HCl 25 mg tablet TAKE 2 TABLETS BY MOUTH DAILY NEEDED FOR ITCHING. TAKE 2 TAB FOR INSOMNIA 03/19 completed Not Available Not Available Not Available hydrochloro thiazide 25 mg tablet TAKE 1 TABLET BY MOUTH EVERY DAY 03/19 completed Not Available Not Available Not Available benazepril 40 mg tablet TAKE 1 TABLET BY MOUTH EVERY DAY 03/19 completed Not Available Not Available Not Available neomycin 500 mg tablet TAKE 1 TABLET BY MOUTH 3 TIMES A DAY THE DAY BEFORE SURGERY 1PM,2PM,A ND 9PM 03/19 completed Not Available Not Available Not Available albuterol sulfate HFA 90 mcg/actuati on aerosol inhaler INHALE 2 PUFFS BY MOUTH EVERY 4 HOURS NEEDED FOR SHORTNESS OF BREATH 03/19 completed Not Available Not Available Not Available nifedipine ER 60 mg tablet,exte nded release TAKE 1 TABLET BY MOUTH EVERY DAY 03/19 completed Not Available Not Available Not Available atenolol 50 mg tablet TAKE 1 TABLET BY MOUTH EVERY DAY 03/19 completed Not Available Not Available Not Available Pain Reliever (acetaminop hen) 500 mg tablet TAKE 2 TABLETS BY MOUTH THREE TIMES DAILY 03/19 completed Not Available Not Available Not Available metoprolol tartrate 25 mg tablet TAKE 1 TABLET BY MOUTH 2 TIMES DAILY FOR 180 DAYS. 03/19 completed Not Available Not Available Not Available lidocaine (PF) 10 mg/mL (1 %) injection solution Take 2 mL by injection route. 03/19 completed Not Available Not Available Not Available Stool Softener-St imulant Laxative 8.6 mg-50 mg tablet TAKE 2 TABLETS BY MOUTH IN THE EVENING 03/19 completed Not Available Not Available Not Available GaviLyte-G 236 gram-22.74 gram-6.74 gram-5.86 gram oral solution DRINK STARTING AT 8AM ON THE DAY BEFORE SURGERY 03/19 completed Not Available Not Available Not Available Flowflex COVID-19 Antigen Home Test kit USE DIRECTED 11/21 completed Not Available Not Available Not Available Vitals Date Recorded Body height Provider Name an d Address Organization Details Last Updated DateTime 03/19/[address]23 [address] [place] [facility] 03/19/2023 11:29:09 Date Recorded Body height Body mass index (BMI) Body weight Provider Name and Address Organization Details Last Updated DateTime 11/21/2022 177.8 cm 27.3 kg/m2 [address].[address] [facility] 11/21/2022 14:52:59 Social History Question Answer Notes LastModified by Organizat ion Details LastModified Time Tobacco Smoking Status Former Smoker quit 1976 Nina Piedra null, [place] [facility] 11/21/2022 14:52:52 What Is Your Level Of Alcohol Consumption? Occasional [email or web address] Information not available 11/21/2022 How Many Times Per Week Do You Consume Alcohol? Less Than 1 Time Per Week [email or web address] Information not available 11/21/2022 Do You Use Any Illicit Or Recreational Drugs? No [email or web address] Information not available 11/21/2022 Sex: Unknown Functional Status None recorded. Mental Status None recorded. Family History Relationship Description Onset Age of this Age Resolved Age Notes LastModified by Organization Details LastModified Time Mother Hypertensive disorder [email or web address] Not available 11/21 14:53:14 Medical History Condition Response Coronary Artery Disease N Gout N Hyperthyroidism N MRSA N Blood Transfusion N Emphysema N Depression N COPD N Hypothyroidism N Pacemaker N Vascular Disease N Gastrointestinal Disease N Anxiety Disorder N Autoimmune disease N Arthritis N Cancer N Stroke N High Cholesterol N Neurologic Disorder N Liver Disease N Organ Transplant N Rheumatoid Arthritis N Arrhythmia N Fibromyalgia N Kidney Disease N Allergies/Hayfever N Adverse Reaction to Anesthesia N Thyroid Problems N Anemia N Brain Injury N Heart Attack ([place]) N Osteopenia N Diabetes N Bleeding Disorder N Seizures/Epilepsy N AIDS/HIV N Congestive Heart Failure (CHF) N Asthma N Amputation N Reflux/GERD N Sleep Apnea N Hepatitis N Aneurysm N Heart Disease N Pulmonary Embolism N Hypertension Y Osteoporosis N Gynecological HistoryNo gynecological history recorded. Obstetrics History GPAL:G 0 P 0 0 0 0 Past Encounters Encounter ID Performer Location Encounter Start Date Encounter Closed Date Diagnosis/Indication Diagnosis SNOMED-CT Code Diagnosis ICD10 Code Diagnosis Note [id number] MD DANIEL Malone [address] [facility] [place] [id number] 11/21/2022 14:44:21 11/21/2022 15:17:37 Follow-up visit [id number] [id number] MD DANIEL Duong [address] [facility] [address] [facility] [place] [id number] 03/19/2023 11:08:33 03/19/2023 12:03:45 Pain of left shoulder joint 1422123415 6241524 M25.512 Impingemen t syndrome of left shoulder region 7875978820 32736 M75.42 Health Concerns Section Related Observation LastModified by Organization Detai ls LastModified Time None Recorded Concern Status LastModified by Organization Details LastModified Time None Recorded Advance Directives Directive None Recorded Payers Encounter Date Sequence Insurance Name Policy Number Policy Moreno Covered Member ID Moreno Member ID Guarantor Name 11/21/2022 1 [place] [employer] Katarzyna Buck [id number] Katarzyna Buck 11/21/2022 2 [employer] - OPTIONS Katarzyna Buck [id number] Katarzyna Buck 03/19/2023 1 [place] [employer] Katarzyna Buck [id number] Katarzyna Buck 03/19/2023 2 [employer] - OPTIONS Katarzyna Buck [id number] Katarzyna Buck Notes Date Note Type Note Provider Name and Address Organization Details Recorded Time 11/21/2022 text/html L hip. L-BRIAN 01/10/22. 72-year-old female status post left total hip arthroplasty on the above-noted date. Patient here for scheduled follow-up. States occasional discomfort otherwise doing well no other complaints. She states she does her stretching exercise regimen as well as takes her antibiotics prior to dental work. 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 She has been in rehab. And been recuperating gradually. KAYA FRANCIS PA-C [address] [place] [address], [address], [place] [facility] 11/25/2022 07:47:45 03/19/2023 text/html Very pleasant 73-year-old female [id number] chief complaint left shoulder pain. Ongoing exacerbation since reanastomosis of her colon history of ostomy. Recently had surgery states notable discomfort wakes her up at night denies any swelling denies fevers chills here for evaluation treatment. She also denies any neck symptoms or paresthesias. X-rays at today's visit reveals mild degenerative changes to the AC joint well-maintained glenohumeral joint, type III acromion. No acute bony abnormality. KAYA FRANCIS PA-C [address] [place] [address], [place], [address], [place] [facility] 03/19/2023 12:25:31 OBGyn Episode No OBEpisode recorded.
== END 2024-08-17 09:10 | disposition home or self-care (01) ==
LOC: HO.HOSX 09:09
PROVIDERS: Visit Provider Orthopaedic Surgery
DX: M25.811 Other specified joint disorders, right shoulder (principal); M25.511 Pain in right shoulder
CPT/HCPCS: 20610; 73030; 99202; J1010; J2003

== ENCOUNTER 2024-08-17 12:37 | Outpatient (AMB) | payer MEDICARE, SELFPAY ==
--- NOTE | 2024-08-17 12:46 | A.OFFVIS_ITS ---
Vital Signs 08/17/24 12:51 Height 5 ft 10 in Weight 195 lb BMI 28.0 Handedness Right Intake Visit Reasons: Right shoulder pain Intake Note: Katarzyna is a 74 year old right hand dominant female who presents with complaints of progressively worsening right shoulder pain. She describes her pain as sharp in nature. She denies any weakness. She has tried Tylenol and anti- inflammatory medicines which gave her minimal relief. She wishes to hold off on surgery if at all possible. Allergies hydrocodone Allergy (Verified 08/17/24 12:50) swelling of the face Medication List - Last Reconciled 08/17/24 by Javi Tello MD atorvastatin 40 mg PO DAILY lisinopril 10 mg PO QAM metoprolol tartrate 50 mg PO BID PFSH Social History (Updated 08/17/24 @ 12:53 by Nigel Chamberlain) Alcohol intake: current Alcohol intake frequency: 3 or more drinks per day Alcohol type: wine Patient Tobacco Use Status: Never used Tobacco Current occupational status: retired Current occupation: right hand dominant Physical Exam Vital Signs: BMI result Body Mass Index 28.0 Const Other: Well-nourished well-developed very friendly female awake alert and oriented x3 in no acute distress Extrem Other: Bilateral upper extremity examination shows good capillary refill, no skin lesions noted, normal sensation light touch Right shoulder examination shows full range of motion when compared to her left shoulder, 4+ out of 5 strength with supraspinatus testing, positive impingement signs, tenderness over her acromioclavicular joint, no instability Office Procedures AMB Joint Injection/Aspiration Joint Injection/Aspiration Primary Site: right shoulder Prep: site was prepped using aseptic technique Injected: 40 mg of, DepoMedrol and 1% plain lidocaine Procedure: The patient tolerated the procedure well Coding 48102 - Large joint Procedure code (CPT) selection complete Results Reviewed Results Reviewed: X-rays of the patient's right shoulder show acromioclavicular joint narrowing, a type 2 acromion, no acute bony abnormalities Assessment & Plan Assessment & Plan (1) Impingement of right shoulder: Code(s): M25.811 - Other specified joint disorders, right shoulder Category: Medical (2) Right shoulder pain: Code(s): M25.511 - Pain in right shoulder Category: Medical Plan Ms. uBck presents with right shoulder pain due to impingement syndrome. I had a lengthy discussion with the patient regarding the options. She wishes to hold off on surgery for as long as possible. I agree with this plan. The risks and benefits of a right shoulder cortisone injection were discussed at length with the patient. The patient wished to proceed. She tolerated the injection well. She will continue with a home exercise program. She will follow up with me on an as-needed basis should her symptoms not plateau at an unacceptable level over the next few months. Feel free to call me at any time should questions regarding her orthopedic management arise. Thank you very much for asking me to see this very friendly patient. I spent 21 minutes in reviewing the patient's records and imaging studies, seeing the patient and documenting in the medical record. Orders: Orders XR shoulder RT min 2V 08/17/24 M25.511 - Pain in right shoulder AMB Joint Injection/Aspiration 08/17/24 M25.811 - Other specified joint disorders, right shoulder Coding Level of Care Code New Pt Level 3 (89417) Complex EM visit Add On G2211 Diagnoses Impingement of right shoulder M25.811 Right shoulder pain M25.511 CPT Codes Coding - 34813 Large joint: 02920 - Large joint ([id number])
[2024-08-17 12:51] VITALS: BMI 28.0
--- OUTSIDE RECORDS SUMMARY | 2024-08-17 14:34 | XMS_ITS ---
Author Name [facility] Organization Unknown History of Medication Use Medication Directions Dispensed Refills Start Date End Date Stat us tramadol 50 mg tablet TAKE 1 TABLET BY MOUTH EVERY 8 HOURS NEEDED FOR PAIN 03/19/2023 active gabapentin 300 mg capsule TAKE 1 CAPSULE BY MOUTH IN THE EVENING 03/19/2023 active methocarbamol 750 mg tablet TAKE 1 TABLET BY MOUTH THREE TIMES DAILY 03/19/2023 active atenolol 50 mg tablet TAKE 1 TABLET BY MOUTH EVERY DAY 03/19/2023 active metronidazole 500 mg tablet TAKE 1 TABLET BY MOOUT 3 TIMES A DAY THE DAY BEFORE SURGERY 1PM,2PM, AND 9PM 03/19/2023 completed alprazolam 0.5 mg tablet Take 1 tablet 3 times a day by oral route. 03/19/2023 completed bupivacaine HCl 0.5 % (5 mg/mL) injection solution Take 2 mL by injection route. 03/19/2023 active oseltamivir 75 mg capsule TAKE 1 CAPSULE BY MOUTH TWICE DAILY FOR 5 DAYS FOR THE FLU 03/19/2023 active neomycin 500 mg tablet TAKE 1 TABLET BY MOUTH 3 TIMES A DAY THE DAY BEFORE SURGERY 1PM,2PM,AND 9PM 03/19/2023 completed Allergies Allergen Reaction Severity Comment Documented Date Source Statu s HYDROCODONE ENS_AONECT Problems Problem Status Onset Date Problem Type Date of Resoluti on Source Impingement syndrome of left shoulder region active 2023-03-19 ProblemAct ENS_AON ECT Encounters Encounter Type Encounter Reason Primary Diagnosis Location Date Ambulatory [facility] 11/25/2022 Ambulatory [facility] 11/21/2022 Ambulatory [facility] 11/18/2022 Ambulatory [facility] 11/18/2022 Ambulatory [facility] 09/01/2022 Care Team Organization Name Specialty Phone Email Start Date End Da te [facility] 04/10/2022 12/28/2023
--- OUTSIDE RECORDS SUMMARY | 2024-08-17 14:35 | XMS_ITS | Clinical Summary ---
Author Organization [facility] Facility Address [address] [address] Care Team Providers Care Central Office Frame Wirer Name Role Phone Mary Ocampo Primary Care Provider [phone] Allergies Active Allergy Reactions Criticality Noted Date Comments Colesevelam Other (see comments) 08/20/2022 Joint pain Gabapentin Nausea 08/20/2022 Lisinopril Other (see comments) 08/20/2022 cough Niacin 08/20/2022 Penicillins Rash Low 08/20/2022 Statins Other (see comments) 08/20/2022 Muscle pain Tramadol Other (see comments) 08/20/2022 headache Medications amitriptyline (ELAVIL) 10 MG tablet Take 10 mg by mouth every night Active aspirin-acetami nophen-caffeine (EXCEDRIN MIGRAINE) 250-250-65 MG per tablet Take 2 tablets by mouth every 6 (six) hours if needed for headaches Active dilTIAZem XR (DILACOR XR) 180 MG 24 hr capsule Take 180 mg by mouth 1 (one) time each day Active EVOLOCUMAB SC Inject 140 mg under the skin every 14 (fourteen) days Active ezetimibe (ZETIA) 10 MG tablet Take 10 mg by mouth 1 (one) time each day Active Fluticasone-Ume clidin-Vilant (Trelegy Ellipta) 100-62.5-25 MCG/ACT aerosol powder Inhale 1 puff 1 (one) time each day Active levalbuterol (XOPENEX HFA) 45 MCG/ACT inhaler Inhale 2 puffs every 6 (six) hours if needed for wheezing Active loratadine (CLARITIN) 10 MG tablet Take 10 mg by mouth 1 (one) time each day Active losartan (COZAAR) 50 MG tablet Take 50 mg by mouth 1 (one) time each day Active pantoprazole (PROTONIX) 40 MG EC tablet Take 40 mg by mouth every night Do not crush, chew, or split. Active propranolol (INDERAL) 60 MG tablet Take 60 mg by mouth in the morning and 60 mg in the evening. Active sertraline (ZOLOFT) 100 MG tablet Take 200 mg by mouth 1 (one) time each day Active tiZANidine (ZANAFLEX) 4 MG tablet Take 4 mg by mouth at night if needed for muscle spasms Active Family History Relation Status Comments Father Mother Paternal Grandfather Social History Tobacco Use Types Packs/Day Years Used Date Smoking Tobacco: Former Cigarettes 2003 Smokeless Tobacco: Never Tobacco Cessation:Counseling Given: Not Answered Alcohol Use Standard Drinks/Week Comments Yes 0 (1 standard drink = 0.6 oz pur e alcohol) ocassional beer Comments Unknown Sex and Gender Information Value Date Recorded Sex Assigned at Not on file Legal Sex Female 8:07 AM EST Gender Identity Not on file Sexual Orientation Not on file Plan of Treatment Health Maintenance Due Date Last Done Comments Pneumococcal Vaccine: 65+ Ye ars (1 of - PCV) 01/26/2013 Influenza Vaccine (Season Ended) 2025 Hepatitis B Vaccine Aged Out No longe r eligible based on patient's age to complete this topic Insurance [address] [place] [address] MEDICARE [facility] MEDICARE [facility] Care Teams Central Office Frame Wirer Relationship Specialty Start Date End Date Mary Ocampo [address] [place] [id number] PCP - General 05/22/22
--- OUTSIDE RECORDS SUMMARY | 2024-08-17 14:35 | XMS_ITS | Clinical Summary ---
Author Organization [facility] it Address [address] [place] [address] Care Team Providers Care [employer] Teacher Name Role Phone Mary Ocampo MD Primary Care Provider [phone] Surgical History Surgery Date Site/Laterality Comments OTHER SURGICAL HISTORY 01/10/2022 Left PROCEDURE: LA UNLISTED PROCEDURE PELVIS/HIP JOINT; COMMENT: at [facility]. Medical History Medical History Date Comments Primary hypertension 04/21/2022 DX:Primary hypertension Mixed hyperlipidemia 04/21/2022 DX:Mixed hy perlipidemia Gastroesophageal reflux dise ase without esophagitis 04/21/2022 DX:Gastroesophageal reflux d isease without esophagitis HONEY (obstructive sleep apnea) 05/26/2022 DX :HONEY (obstructive sleep apnea) Social History Tobacco Use Types Packs/Day Years Used Date Smoking Tobacco: Former Smokeless Tobacco: Never Alcohol Use Standard Drinks/Week Comments Yes 0 (1 standard drink = 0.6 oz pur e alcohol) Comments Unknown Sex and Gender Information Value Date Recorded Sex Assigned at Not on file Legal Sex Female 3:57 PM EST Gender Identity Not on file Sexual Orientation Not on file Obstetrics History Last Filed Vital Signs Vital Sign Reading Time Taken Comments Blood Pressure 136/90 02/26/2023 2:02 PM EDT Sit ting L Arm Pulse 61 02/26/2023 2:02 PM EDT Temperature - - Respiratory Rate - - Oxygen Saturation - - Inhaled Oxygen Concentration - - Weight 78.9 kg (174 lb) 02/26/2023 2:02 PM EDT Height 177.8 cm (5' 10 ) 02/26/2023 2:02 PM EDT Body Mass Index 24.97 02/26/2023 2:02 PM EDT Plan of Treatment Health Maintenance Due Date Last Done Comments DTaP,Tdap,and Td Vaccines (1 - Tdap) 01/26/1967 Pneumococcal Vaccine: 50+ Ye ars (1 of 1 - PCV) 01/26/1998 Zoster Vaccines (1 of 2) 01/26/1998 Cholesterol Screening (Lipid Panel) 04/24/2022 Depression Screening 04/24/2022 Falls Risk Assessment 04/24/2022 Hepatitis C Screening 04/24/2022 Osteoporosis Screening (Bone Density Screening) 04/24/2022 Social Influencers of Health Screening 04/24/2022 RSV Immunization Adult Patie nts (1 - 1-dose 75+ series) 01/26/2023 Hypertension/CHF/CAD Annual BMP Blood Test 06/09/2023 COVID-19 Vaccine ( - 2023-2 5 season) 2024 Influenza Vaccine (#1) 2024 HIB Vaccines Aged Out No longer eligi ble based on patient's age to complete this topic HPV Vaccines Aged Out No longer eligi ble based on patient's age to complete this topic Hepatitis A Vaccines Aged Out No long er eligible based on patient's age to complete this topic Hepatitis B Vaccines Aged Out No long er eligible based on patient's age to complete this topic IPV Vaccines Aged Out No longer eligi ble based on patient's age to complete this topic MMR Vaccines Aged Out No longer eligi ble based on patient's age to complete this topic Meningococcal ACWY Vaccine Aged Out N o longer eligible based on patient's age to complete this topic Meningococcal B Vaccine Aged Out No l onger eligible based on patient's age to complete this topic RSV Immunization Patients Un elia 20 months Aged Out No longer eligible b ased on patient's age to complete this topic Varicella Vaccines Aged Out No longer eligible based on patient's age to complete this topic Advance Directives Documents on File Type Date Recorded 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
--- OUTSIDE RECORDS SUMMARY | 2024-08-17 14:35 | XMS_ITS | Data Portability ---
Author Organization [facility] [employer] - 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 Plan of Treatment Reminders Order Date Submit Date Provider Last Modified By Organization Details Last Modified Time Details Appointments None recorded. Lab urinalysis , dipstick 2020 021 [email or web address] In-House Results, For Internal Use Only, Do Not Delete/merge, [id number] 1 14:08:45 culture, urine 2020 021 [facility], [address], [place], [address], 1 14:24:46 bacterial vaginosis + vaginitis panel, vaginal 2019 020 [facility], [address], [place], [address], 0 11:29:50 urinalysis , dipstick 2019 020 [email or web address] In-House Results, For Internal Use Only, Do Not Delete/merge, [id number] 0 21:12:12 bacterial vaginosis + vaginitis panel, vaginal 2017 018 [facility], [address], [place], [address], 8 16:09:32 urinalysis , dipstick 2017 018 In-House Results, For Internal Use Only, Do Not Delete/merge, [id number] 8 13:46:13 Referral None recorded. Procedures None recorded. Surgeries None recorded. Imaging MAMMO, screening, digital, bilateral 2018 019 ELIJAH Not available 0 05:02:35 MAMMO, screening, digital, bilateral 2017 018 ELIJAH Not available 8 08:51:24 DEXA 2017 018 ELIJAH Not available 8 16:49:25 Medication Orders Macrobid 100 mg capsule 2020 021 INTERFACE [facility] [address] [place], [address], 1 14:08:57 terconazol e 0.4 % vaginal cream 2019 020 INTERFACE [facility] [address], [address] [place], [address], 0 16:45:48 Patient TargetsNo targets recorded. Patient Instructions Encounter Date Encounter Id Patient Instructions Last Modified By Organization Details Last Modified Time 06/15/2017 [id number] self breast exam education Not available 06/15/2017 13:34:34 well visit, over 65: care instructions Not available 06/15/2017 13:34:34 preventing osteoporosis: care instructions Not available 06/15/2017 13:34:34 09/14/2017 [id number] bladder training : care instructions Not available 09/14/2017 13:46:13 kegel exercises: care instructions Not available 09/14/2017 13:46:13 Stress Incontinence: Care Instructions Not available 09/14/2017 13:46:13 07/14/2018 [id number] preventing osteoporosis: care instructions Not available 07/14/2018 11:32:03 kegel exercises: care instructions Not available 07/14/2018 11:32:03 learning about menopause Not available 07/14/2018 11:32:03 safer sex: care instructions Not available 07/14/2018 11:32:03 self breast exam education Not available 07/14/2018 11:32:03 Well Visit, Ages 18 to 65: Care Instructions Not available 07/14/2018 11:32:03 skin cancer prevention: care instructions Not available 07/14/2018 11:32:03 colonoscopy education Not available 07/14/2018 11:32:03 well visit, over 65: care instructions Not available 07/14/2018 11:32:03 Reason for Referral None Reported. Results Created Date Observation Date Name Description Value Unit Range Abnormal Flag Note LastModifiedBy Organization Detail LastModifiedTime 09/15/19 18 09/19/2017 bacte rial vagin osis + vagin itis panel , vagin al trich vag by DANIELA Negati ve negati ve Not Available [facility] ([facility]) [address] [place], [address], 09/21/2017 16:09:32 09/15/19 18 09/21/2017 bacte rial vagin osis + vagin itis panel , vagin al atopobium vaginae Low - 0 score Not Available [facility] ([facility]) [address] [place], [address], 09/21/2017 16:09:32 09/15/19 18 09/21/2017 bacte rial vagin osis + vagin itis panel , vagin al bvab 2 Low - 0 score Not Available [facility] ([facility]) [address] [place], [address], 09/21/2017 16:09:32 09/15/19 18 09/21/2017 bacte rial vagin osis + vagin itis panel , vagin al megasphaera 1 Low - 0 score Calcu late total score by addin g the 3 indiv idual bacte rial vagin osis (BV) marke r score s toget her. Total score is inter prete d as follo ws: Total score 0-1: Indic ates the absen ce of BV. Total score 2: Indet ermin ate for BV. Addit ional clini ayo data shoul d be evalu ated to estab hai a diagn osis. Total score 3-6: Indic ates the prese nce of BV. This test was devel oped and its perfo rmanc e melecio cteri stics deter mined by [employer]. It has not been clear ed or appro twan by the Food and Drug Admin istra tion. The FDA has deter mined that such clear ance or appro justin is not neces lawrence. Not Available [facility] ([facility]) [address] [place], [address], 09/21/2017 16:09:32 09/15/19 18 09/21/2017 bacte rial vagin osis + vagin itis panel , vagin al bisi albicans, DANIELA Negati ve negati ve Not Available [facility] ([facility]) [address] [place], [address], 09/21/2017 16:09:32 09/15/19 18 09/21/2017 bacte rial vagin osis + vagin itis panel , vagin al bisi glabrata, DANIELA Negati ve negati ve This test was devel oped and its perfo rmanc e melecio cteri stics deter mined by [employer]. It has not been clear ed or appro twan by the Food and Drug Admin istra tion. The FDA has deter mined that such clear ance or appro justin is not neces lawrence. Not Available [facility] ([facility]) [address] [place], [address], 09/21/2017 16:09:32 09/15/19 18 09/14/2017 urina lysis , dipst ick Unknown Analyte Cath Not Available In-Pierre se Results For Internal Use Only, Do Not Delete/merge, [id number] 09/14/2017 13:12:24 09/15/19 18 09/14/2017 urina lysis , dipst ick Unknown Analyte Negati ve Not Available In-House Results For Internal Use Only, Do Not Delete/merge, 09/14/2017 13:12:24 09/15/19 18 09/14/2017 urina lysis , dipst ick Unknown Analyte Negati ve Not Available In-House Results For Internal Use Only, Do Not Delete/merge, 09/14/2017 13:12:24 09/15/19 18 09/14/2017 urina lysis , dipst ick Unknown Analyte Negati ve Not Available In-House Results For Internal Use Only, Do Not Delete/merge, 09/14/2017 13:12:24 09/15/19 18 09/14/2017 urina lysis , dipst ick Unknown Analyte Negati ve Not Available In-House Results For Internal Use Only, Do Not Delete/merge, 09/14/2017 13:12:24 09/15/19 18 09/14/2017 urina lysis , dipst ick Unknown Analyte negati ve Not Available In-House Results For Internal Use Only, Do Not Delete/merge, 09/14/2017 13:12:24 09/15/19 18 09/14/2017 urina lysis , dipst ick Unknown Analyte Negati ve Not Available In-House Results For Internal Use Only, Do Not Delete/merge, 09/14/2017 13:12:24 09/15/19 18 09/14/2017 urina lysis , dipst ick Unknown Analyte Yellow Not Available In-Pierre se Results For Internal Use Only, Do Not Delete/merge, 09/14/2017 13:12:24 09/15/19 18 09/14/2017 urina lysis , dipst ick Unknown Analyte Clear Not Available In-Pierre se Results For Internal Use Only, Do Not Delete/merge, 09/14/2017 13:12:24 05/01/20 20 05/01/2020 bacte rial vagin osis + vagin itis panel , vagin al other info Other Inform ation Not Available [facility] [address], [place], [address], 05/02/2020 11:29:50 05/01/20 20 05/02/2020 bacte rial vagin osis + vagin itis panel , vagin al vagina,swab Vagin a,swa b Not Available [facility] [address], [place], [address], 05/02/2020 11:29:50 05/01/20 20 05/02/2020 bacte rial vagin osis + vagin itis panel , vagin al trichomonas vaginalis Negati ve Not Available [facility] [address], [place], [address], 05/02/2020 11:29:50 05/01/20 20 05/02/2020 bacte rial vagin osis + vagin itis panel , vagin al bisi glabrata Negati ve Not Available [facility] [address], [place], [address], 05/02/2020 11:29:50 05/01/20 20 05/02/2020 bacte rial vagin osis + vagin itis panel , vagin al bisi albicans, tropicalis, dubliniesis + parapsilosis result Negati ve Not Available [facility] [address], [place], [address], 05/02/2020 11:29:50 05/01/20 20 05/02/2020 bacte rial vagin osis + vagin itis panel , vagin al bacterial vaginosis Negati ve Not Available [facility] [address], [place], [address], 05/02/2020 11:29:50 05/01/20 20 05/01/2020 urina lysis , dipst ick Unknown Analyte Clean Catch Not Available In-House Results For Internal Use Only, Do Not Delete/merge, [id number] 05/01/2020 16:50:30 05/01/20 20 05/01/2020 urina lysis , dipst ick Unknown Analyte Negati ve Not Available In-House Results For Internal Use Only, Do Not Delete/merge, [id number] 05/01/2020 16:50:30 05/01/20 20 05/01/2020 urina lysis , dipst ick Unknown Analyte Negati ve Not Available In-House Results For Internal Use Only, Do Not Delete/merge, [id number] 05/01/2020 16:50:30 05/01/20 20 05/01/2020 urina lysis , dipst ick Unknown Analyte Negati ve Not Available In-House Results For Internal Use Only, Do Not Delete/merge, [id number] 05/01/2020 16:50:30 05/01/20 20 05/01/2020 urina lysis , dipst ick Unknown Analyte 1.000 Not Available In-Pierre se Results For Internal Use Only, Do Not Delete/merge, [id number] 05/01/2020 16:50:30 05/01/20 20 05/01/2020 urina lysis , dipst ick Unknown Analyte Negati ve Not Available In-House Results For Internal Use Only, Do Not Delete/merge, 05/01/2020 16:50:30 05/01/20 20 05/01/2020 urina lysis , dipst ick Unknown Analyte 5.0 Not Available In-Pierre se Results For Internal Use Only, Do Not Delete/merge, 05/01/2020 16:50:30 05/01/20 20 05/01/2020 urina lysis , dipst ick Unknown Analyte Negati ve Not Available In-House Results For Internal Use Only, Do Not Delete/merge, 05/01/2020 16:50:30 05/01/20 20 05/01/2020 urina lysis , dipst ick Unknown Analyte 0.2 Not Available In-[facility] se Results For Internal Use Only, Do Not Delete/merge, [id number] 05/01/2020 16:50:30 05/01/20 20 05/01/2020 urina lysis , dipst ick Unknown Analyte negati ve Not Available In-House Results For Internal Use Only, Do Not Delete/merge, 05/01/2020 16:50:30 05/01/20 20 05/01/2020 urina lysis , dipst ick Unknown Analyte Negati ve Not Available In-House Results For Internal Use Only, Do Not Delete/merge, [id number] 05/01/2020 16:50:30 05/01/20 20 05/01/2020 urina lysis , dipst ick Unknown Analyte Yellow Not Available In-Pierre se Results For Internal Use Only, Do Not Delete/merge, 05/01/2020 16:50:30 05/01/20 20 05/01/2020 urina lysis , dipst ick Unknown Analyte Clear Not Available In-Pierre se Results For Internal Use Only, Do Not Delete/merge, 05/01/2020 16:50:30 05/24/19 21 05/27/2020 cultu re, urine culture, urine, routine abnormal CULTU RE, URINE , ROUTI NE Micro Numbe r: [id number] Test Statu s: Final Speci men Sourc e: URINE Speci men Quali ty: Adequ ate Resul t: 10,00 0-49, 000 CFU/m L of Esche chance a coli Addit ional non-p redom inati ng organ ism(s ) isola navi. These organ isms, commo nly found on exter nal and inter nal genit nikhil, are consi dered colon izers . No furth er testi ng perfo rmed. E.col i ----- ----- ----- - INT ESHA AMPIC ILLIN S <=2 AMP/S ULBAC KRUSE S 4 CEFAZ RAUL NR <=4 2 CEFEP SAMI S <=1 CEFTR IAXON E S <=1 CIPRO FLOXA ASHUTOSH S <=0.2 5 GENTA MICIN S <=1 IMIPE NEM S <=0.2 5 LEVOF LOXAC IN S <=0.1 2 NITRO FURAN TOIN S <=16 TOBRA MYCIN S <=1 TRIME THOPR IM/VALENTE LFA S <=20 S=[place] cepti ble I=Int ermed iate R=Res istan t * = Not Teste d NR = Not Repor navi NN = See Thera py Comme nts THERA PY COMME NTS Note 1: For infec tions other than uncom plica navi UTI cause d by E. coli, K. pneum oniae or P. mirab ilis: Cefaz raul is resis tant if ESHA > or = 8 mcg/m L. (Dist ingui shing susce ptibl e versu s inter media te for isola amari with ESHA < or = 4 mcg/m L requi res addit ional testi ng.) Note 2: For uncom plica navi UTI cause d by E. coli, K. pneum oniae or P. mirab ilis: Cefaz raul is susce ptibl e if ESHA <32 mcg/m L and predi cts susce ptibl e to the oral agent s cefac amaris, cefdi justin, cefpo doxim e, cefpr ozil, cefur oxime , cepha lexin and lorac arbef . Not Available [facility] [address], [place], [address], 05/27/2020 14:24:46 05/24/1905/24/2020 urina lysis , dipst ick Unknown Analyte Negati ve Not Available In-House Results For Internal Use Only, Do Not Delete/merge, 05/24/2020 13:39:38 05/24/1905/24/2020 urina lysis , dipst ick Unknown Analyte Negati ve Not Available In-House Results For Internal Use Only, Do Not Delete/merge, 05/24/2020 13:39:38 05/24/19 21 05/24/2020 urina lysis , dipst ick Unknown Analyte Negati ve Not Available In-House Results For Internal Use Only, Do Not Delete/merge, 05/24/2020 13:39:38 05/24/19 21 05/24/2020 urina lysis , dipst ick Unknown Analyte 1.030 Not Available In-Pierre se Results For Internal Use Only, Do Not Delete/merge, 05/24/2020 13:39:38 05/24/1905/24/2020 urina lysis , dipst ick Unknown Analyte Modera te Not Available In-House Results For Internal Use Only, Do Not Delete/merge, 05/24/2020 13:39:38 05/24/1905/24/2020 urina lysis , dipst ick Unknown Analyte 5.0 Not Available In-Pierre se Results For Internal Use Only, Do Not Delete/merge, 05/24/2020 13:39:38 05/24/19 21 05/24/2020 urina lysis , dipst ick Unknown Analyte 30 Not Available In-Pierre se Results For Internal Use Only, Do Not Delete/merge, 05/24/2020 13:39:38 05/24/19 21 05/24/2020 urina lysis , dipst ick Unknown Analyte 0.2 Not Available In-Pierre se Results For Internal Use Only, Do Not Delete/merge, 05/24/2020 13:39:38 05/24/19 21 05/24/2020 urina lysis , dipst ick Unknown Analyte negati ve Not Available In-House Results For Internal Use Only, Do Not Delete/merge, 05/24/2020 13:39:38 05/24/19 21 05/24/2020 urina lysis , dipst ick Unknown Analyte Modera te Not Available In-House Results For Internal Use Only, Do Not Delete/merge, 05/24/2020 13:39:38 05/24/19 21 05/24/2020 urina lysis , dipst ick Unknown Analyte Yellow Not Available In-Pierre se Results For Internal Use Only, Do Not Delete/merge, 05/24/2020 13:39:38 05/24/19 21 05/24/2020 urina lysis , dipst ick Unknown Analyte Slight ly Cloudy Not Available In-House Results For Internal Use Only, Do Not Delete/merge, 05/24/2020 13:39:38 09/22/19 18 09/21/2017 DEXA No observ ation record ed. [facility] [address] [place], [address], 09/22/2017 10:47:52 10/01/19 18 09/17/2017 MAMMO , scree marie, digit al, bilat eral No observ ation record ed. [facility] [address], [place], [address], 09/30/2017 12:14:32 Result Notes None recorded. Problems Name Problem SNOMED Code Status Onset Date Resolution Date Notes Provider Name and Address Organization Details Recorded Time Contact dermatitis [id number] Active 021 Calli Santiago MD [address], [address], [place], [address], [facility] [employer] [facility] 14:10:55 Problem Notes None recorded. Procedures Surgical History Date Name Laterality Status Provider Name and Address Organization Details Recorded Time 08/10/19 18 Date of Last Mammogram completed DEB GARRETT DO [address] [facility] [address], [place], [address], [facility] [employer], [facility] 07/14/2018 11:18:45 05/11/19 18 Xcapsl ctrc rmvl cplx wo ecp completed Not Available [facility] 05/24/2020 13:32:06 05/11/19 15 Ligation of hemorrhoid(s) completed Not Available [facility] 05/24/2020 13:32:06 05/11/19 13 GI- Hemorrhoid Surgery completed Not Available [facility] 05/24/2020 13:32:06 05/11/19 07 Date of Last Colonoscopy completed Deb Ivey (TERMED) [facility] 09/29/2016 09:57:46 05/11/19 01 Date of Last Pap Smear completed Deb Ivey (TERMED) [facility] [employer] [facility], [facility] 09/29/2016 09:48:25 05/11/19 01 PRUNER- Hysterectomy, Vaginal completed Not Available [facility] 05/24/2020 13:32:06 05/11/19 01 Hysterectomy/john e vagina completed Not Available [facility] 05/24/2020 13:32:06 05/11/19 01 Vaginal hysterectomy completed Not Available [facility] 05/24/2020 13:32:06 05/11/18 85 Surgery-Other completed Not Available [facility] 05/24/2020 13:32:06 05/11/18 74 GI- Cholecystectomy completed Not Available [facility] 05/24/2020 13:32:06 05/11/18 74 Cholecystectomy completed Not Available [facility] 05/24/2020 13:32:06 Imaging Results Imaging Date Name Status LastModified by Organiz ation Details LastModified Time 09/21/2017 DEXA completed [facility] [address], [place], [address], 09/22/2017 10:47:52 09/17/2017 MAMMO, screening, digital, bilateral completed [facility] [address], [place], [address], 09/30/2017 12:14:32 Procedure Notes None recorded. Medical Equipment None Reported. Allergies Allergen ID Allergen Name Allergen Category Reaction Reaction Severity Criticality Documentation Date Start Date Code Code System Note Provider Name and Address Organization Details Recorded Time [id number] Substance with sulfonami de structure and antibacte rial mechanism of action (substanc e) medicatio n Not available Not available Not available 06/01/2020 26554 8003 SNOMED upset s stoma ch Deja Zack [facility] 1 11:15:27 448493 hydrocodo ne Not available Not available Not available Not available 09/29/2016 5489 RxNorm Deb Ivey (TERMED) [facility] 7 09:47:47 [id number] codeine medicatio n Not available Not available Not available 09/29/2016 2670 RxNorm Deb Ivey (TERMED) [facility] 7 09:47:53 Medications Name Sig Start Date Stop Date Status Note LastModified by Organization Details LastModified Time atorvastati n 40 mg tablet TAKE 1 TABLET BY MOUTH ONCE DAILY active Not Available Not Available No t Available metformin 500 mg tablet active Not Available Not Available Not Available terconazole 0.4 % vaginal cream INSERT 1 APPLICATO RFUL VAGINALLY ONCE DAILY FOR 7 DAYS active Not Available Not Available No t Available Estring 2 mg (7.5 mcg/24 hour) vaginal ring Insert 1 vaginal ring by vaginal route for 90 days. 12/04 completed Not Available Not Available Not Available atorvastati n 20 mg tablet TAKE 1 TABLET BY MOUTH ONCE DAILY active Not Available Not Available No t Available trazodone 50 mg tablet TAKE 1 2 (ONE HALF) TABLET BY MOUTH ONCE DAILY AT BEDTIME active Not Available Not Available No t Available pravastatin 40 mg tablet TAKE 1 TABLET BY MOUTH ONCE DAILY active Not Available Not Available No t Available benazepril 20 mg-hydrochl orothiazide 25 mg tablet 09/29 completed Not Available Not Available Not Available atenolol 25 mg tablet TAKE 2 TABLETS BY MOUTH ONCE DAILY active Not Available Not Available No t Available triamcinolo ne acetonide 0.5 % topical ointment APPLY A THIN LAYER TO THE AFFECTED AREA(S) BY TOPICAL ROUTE 2 TIMES PER DAY active Not Available Not Available No t Available ciprofloxac in 250 mg tablet Take 1 tablet twice a day by oral route for 3 days. active Not Available Not Available No t Available sulfamethox azole 800 mg-trimetho prim 160 mg tablet Take 1 tablet every 12 hours by oral route for 7 days. active Not Available Not Available No t Available oxycodone-a cetaminophe n 5 mg-325 mg tablet active Not Available Not Available No t Available alprazolam 0.25 mg tablet TAKE 1 2 (ONE HALF) TABLET BY MOUTH TWICE DAILY NEEDED FOR ANXIETY active Not Available Not Available No t Available cephalexin 500 mg capsule TAKE 1 CAPSULE BY MOUTH TWICE DAILY FOR 10 DAYS active Not Available Not Available No t Available omeprazole 20 mg capsule,del ayed release TAKE 1 CAPSULE BY MOUTH ONCE DAILY active Not Available Not Available No t Available benazepril 20 mg tablet TAKE 1 TABLET BY MOUTH ONCE DAILY active Not Available Not Available No t Available mupirocin 2 % topical ointment active Not Available Not Available Not Available atenolol 50 mg tablet TAKE 1 TABLET BY MOUTH ONCE DAILY active Not Available Not Available No t Available amoxicillin 875 mg-potassiu m clavulanate 125 mg tablet 07/14 completed Not Available Not Available Not Available tobramycin 0.3 %-dexametha sone 0.1 % eye drops,suspe nsion active Not Available Not Available Not Available Premarin 0.625 mg/gram vaginal cream Insert 0.5 applicato rsful twice a week by vaginal route. 2016 active Not Available Not Available Not Avai lable nitrofurant oin monohydrate /macrocryst als 100 mg capsule Take 1 capsule every 12 hours by oral route for 3 days. active Not Available Not Available No t Available Yuvafem 10 mcg vaginal tablet INSRT ONE TABLET TWICE A WEEK BY VAGINAL ROUTE FOR 14 DAYS 12/04 completed Not Available Not Available Not Available Fluzone High-Dose (PF) 180 mcg/0.5 mL intramuscul ar syringe TO BE ADMINISTE RED BY PHARMACIS T FOR IMMUNIZAT ION active Not Available Not Available No t Available Fluzone High-Dose Quad (PF) 240 mcg/0.7 mL IM syringe PHARMACY ADMINISTE RED active Not Available Not Available No t Available Vitals Date Recorded Body height Body mass index (BMI) Body weight Systolic blood pressure Diastolic blood pressure Provider Name and Address Organization Details Last Updated DateTime 06/15/2017 177.8 cm 26.8 kg/m2 69644.77 g 110 mm[Hg] 72 mm[Hg] Haylee Chamberlain (TERMED) [facility] [facility] 8 13:32:22 Date Recorded Body height Systolic blood pressure Diastolic blood pressure Provider Name and Address Organization Details Last Updated DateTime 09/14/2017 177.8 cm 110 mm[Hg] 84 mm[Hg] Margiemurali Singletary (TERMED) [facility] [employer] [facility], [facility] 09/14/2017 13:07:51 Date Recorded Body height Body mass index (BMI) Body weight Systolic blood pressure Diastolic blood pressure Provider Name and Address Organization Details Last Updated DateTime 07/14/2018 177.8 cm 26.8 kg/m2 81200.77 g 120 mm[Hg] 72 mm[Hg] Albina Brar [facility] [employer] [facility], [facility] 9 11:09:55 Date Recorded Body height Body mass index (BMI) Body weight Systolic blood pressure Diastolic blood pressure Provider Name and Address Organization Details Last Updated DateTime 05/01/2020 177.8 cm 28.7 kg/m2 05243.47 g 140 mm[Hg] 90 mm[Hg] Sana Austin (TERMED) [facility] [employer] [facility], [facility] 0 16:15:12 Date Recorded Body height Body mass index (BMI) Body weight Body temperature Systolic blood pressure Diastolic blood pressure Provider Name and Address Organization Details Last Updated DateTime 1 177.8 cm 28.7 kg/m2 56368.4 7 g 97.9 [degF] 142 mm[Hg] 88 mm[Hg] Deja Dixon [place] - [facility], [facility] 13:37:34 Social History Question Answer Notes LastModified by Organizat [employer] Details LastModified Time Tobacco Smoking Status Former Smoker Not Available [facility] 05/24/2020 13:32:06 What Is Your Level Of Alcohol Consumption? Moderate [email or web address] Information not available 05/24/2020 Is Blood Transfusion Acceptable In An Emergency? Yes [email or web address] Information not available 05/24/2020 What Is Your Level Of Caffeine Consumption? Occasional Information not available 09/29/2016 What Type Of Diet Are You Following? 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 No Informati on not available 09/29/2016 Marital Status Informati on not available 09/29/2016 What Was The Date Of Your Most Recent Tobacco Screening? 07/14/2018 Information not available 12/02/2018 Seat Belts Used Routinely Y [email or web address] Information not available 05/24/2020 How Many Years Have You Smoked Tobacco? [id number] [id number] Information not available 05/24/2020 Sex: Unknown Functional Status Question Answer Note LastModified by [employer] Details LastModified Time What is your exercise level? Occasional Information not available 09/29/2016 Mental Status None recorded. Family History Relationship Description Onset Age of this Age Resolved Age Notes LastModified by Organization Details LastModified Time Mother Hypertensive disorder Not available 09/09 09:49:24 Mother Intracranial aneurysm Not available 09/09 09:49:46 Father Alzheimer's disease Not available 09/09 09:49:35 Medical History Condition Response Neurology- Stroke/TIA N Dermatology-Acne N Endocrinology-Other N Hematology-Anemia N Neurology- Seizures/Epilepsy N Ortho-Fractures N Psych- PMS/PMDD N Pulmonary-Other N Psych- Anxiety Disorder N GI- Reflux/Ulcers N Rheumatology-Arthritis N ID-Chicken Pox/Shingles N Cancer- Skin N Cardiology- Heart Disease N GI- Irritable Bowel Syndrome N ID-HIV N GI- Colon Polyps N Endocrinology- Osteopenia N ID-Other N Psych- Eating Disorder N Hematology-Blood Transfusion N Pulmonary- Asthma N Urology- Hematuria (Blood in Urine) N Pulmonary- Sleep Apnea N Neurology- Dementia N Urology- Interstitial Cystitis N GI- Hemorrhoids N Hematology-Blood Clotting Disorder/Facto r V Leiden N Neurology-Other N Endocrinology- Osteoporosis N Psych- Depression N Hematology-Other N Dermatology-Eczema/Psoriasis N Dermatology-Other N Ortho-Chronic Back Pain N Rheumatology-Autoimmune Disease N Cancer- Ovary N Cardiology- High Cholesterol Y Cardiology- Heart Arrhythmia N Hematology-DVT/Pulmonary Embolism N Psych-other N Cancer- Breast N Psych- ADD N GI- Liver Disease/Hepatitis N Weight Management/Obesity N Cancer- Colon N ENT- Hearing Loss N Cancer- Vulvar N Cancer- Vaginal N GI-Other Y Neurology- Headaches/Migraines N Hematology-Bleeding Disorder N Endocrinology- Diabetes N Cancer- Cervical N Pulmonary- COPD/Emphysema N GI- Crohn's/Ulcerative Colitis N Psych- Bipolar Disease N Cardiology- High Blood Pressure Y Cancer- Lung N Cancer- Endometrial/Uterine N Eyes- Vision Loss/Macular Degeneration N ENT-Other N Rheumatology-Other N Urology- Stones N ID-MRSA N Cancer-Other N GI- Gallbladder Disease N Gynecological History Statement/Question Response Date of Last Mammogram 08/09/2017 Date of LMP 05/11/2000 HPV Test N/A Age at Menopause 50 Age at Menarche 11 Post Menopausal Hormone Use Past Use Sexual orientation Heterosexual History of Endometriosis Y History of Cervical Dysplasia N Date of Last Colonoscopy 05/11/2006 Sexually active N Current Control Method: Hysterecto my History of Sexually Transmitted Infectio n N History of Infertility N HPV Vaccine Not applicable Date of last bone density 2017 History of abnormal PAP N Date of Last Pap Smear 05/11/2000 History of Recurrent Ovarian Cyst N History of Fibroids Y History of PCOS N Obstetrics History GPAL:G 0 P 0 0 0 0 Past Encounters Encounter ID Performer Location Encounter Start Date Encounter Closed Date Diagnosis/Indication Diagnosis SNOMED-CT Code Diagnosis ICD10 Code Diagnosis Note [id number] DEB GARRETT DO [id number] [place] [address],[place] [address] 09/29/2016 09:06:42 09/29/2016 17:24:52 Female stress incontinence 55255013 N39.3 Atrophic vaginitis 54644 000 N95.2 [id number] DEB GARRETT DO [id number] [address] [place] [address],[place] [address] 09/30/2016 10:36:24 09/30/2016 17:45:35 Atrophic vaginitis 01440060 N95.2 Unable to comfortabl e use Estring due to short vaginal cuff. Rx given for estrogen cream/vagi anl tablet depending on insurance coverage. [id number] DEB GARRETT DO [id number] [address] [address] [address] 12/04/2016 09:10:47 12/04/2016 17:06:53 Atrophic vaginitis 98762658 N95.2 Female str ess incontinence 47745169 N39.3 Improvemen t after starting vaginal estrogen. Informatio n and referral for PFR. [id number] DEB GARRETT DO [id number] [address] [place] [address] [address] 06/15/2017 13:19:00 06/15/2017 18:05:56 Gynecologic examination 49052757 Z01.419 Atrophic vaginitis 29730 000 N95.2 Rx to [facility] for vaginal estrogen Female str ess incontinence 14891818 N39.3 [id number] DEB GARRETT DO [id number] [address] [place] [address] [address] 09/14/2017 12:57:33 09/16/2017 09:35:14 Pruritus of vulva 12616770 L29.2 OTC hydrocorti sone cream. Avoid irritants. Vaginal odor 460687373 N 89.8 Female str ess incontinence 65709910 N39.3 [id number] DEB GARRETT DO [id number] [address] [place] [address],[place] [address] 07/14/2018 10:52:40 07/15/2018 10:27:17 Gynecologic examination 33972674 Z01.419 Atrophic vaginitis 22573 000 N95.2 compoundin g pharmacy for vaginal estrogen Female str ess incontinence 52764285 N39.3 [id number] YAAKOV MARTINEZ [id number] [address] [place] [address] 05/01/2020 15:34:34 05/01/2020 16:46:32 Vaginitis 58158532 N76.0 [id number] Calli Santiago MD [id number] [address] [address] [place] [facility],[place] [address] 05/24/2020 13:20:18 06/01/2020 11:16:09 Acute urinary tract infection 327246053 N39.0 U/A confirms UTI. Had also one 6 weeks ago. Off her vaginal estrogens. Start Macrobid. Atrophy of vagina 862278 009 N95.2 Will restart compounded vaginal estrogen tablet, which should help prevent UTIs. If recurrent UTIs, will need to see urology. Will call in 1 mg. vaginal tablet 2 times weekly. Health Concerns Section Related Observation LastModified by Organization Detai ls LastModified Time None Recorded Concern Status LastModified by Organization Details LastModified Time None Recorded Advance Directives Directive None Recorded Payers Encounter Date Sequence Insurance Name Policy Number Policy Moreno Covered Member ID Moreno Member ID Guarantor Name 06/15/2017 2 [employer] OPT[employer] (MEDICARE SUPPLEMENT) Katarzyna Buck [id number] Katarzyna Buck 06/15/2017 1 [place] Ktaarzyna Buck [id number] Katarzyna Buck 09/14/2017 2 [employer] OPTIONS (MEDICARE SUPPLEMENT) Katarzyna Buck [id number] Katarzyna Buck 09/14/2017 1 [place] Katarzyna Buck [id number] Katarzyna Buck 07/14/2018 2 [employer] OPTIONS (MEDICARE SUPPLEMENT) Katarzyna Buck [id number] Katarzyna Buck 07/14/2018 1 [place] Katarzyna Buck [id number] Katarzyna Buck 05/01/2020 2 [employer] OPTIONS (MEDICARE SUPPLEMENT) Katarzyna Buck [id number] Katarzyna Buck 05/01/2020 1 [place] Katarzyna Buck [id number] Katarzyna Buck 05/24/2020 2 [employer] OPTIONS (MEDICARE SUPPLEMENT) Katarzyna Buck [id number] Katarzyna Buck 05/24/2020 1 [place] Katarzyna Buck [id number] Katarzyna Buck Notes Date Note Type Note Provider Name and Address Organization Details Recorded Time 06/15/2017 text/html 67 yo annual exa m, hysterectomy.USI has returned after stopping Estrogen 3 months ago ( due to expense) DEB GARRETT DO [address], [address], [place], [address], [facility] 06/15/2017 13:50:12 09/14/2017 text/html c/o of odor and vulvar discomfort. Started using new soap w fragrance. No discharge. Still using vaginal estrogen cream. Still bothered by USI despite PT and estrogen use. Was not able to insert Posie impressa DEB GARRETT DO [address], [address], [place], [address], [facility], [facility] 09/14/2017 13:46:19 07/14/2018 text/html 68 G0Well womanN o concerns.Hysterect omynormal DXA and mammo 2018 Some USI, has previously done pelvic floor PT. Uses tampon for activities with some improvement. Did not do well w pessary. Wants to continue vag Estrogen use. DEB GARRETT DO [address], [address], [place], [address], [facility], [facility] 07/14/2018 11:32:50 05/01/2020 text/html 70F c/o vaginal itching and burning x 1 week. she denies any vaginal discharge or odor. YAAKOV MARTINEZ [address], [address], [place], [address], [facility], [facility] 05/07/2020 23:21:30 05/24/2020 text/html Pt present today with c/o vaginal burning. Pt also states has has itching which seems better. Pt states also a discharge not milky, just moist. Pt also states pain when urinating. Pt has not see a urologist. Pt states this is an on going issue. A 70 year old female G0 presents to the clinic for vaginal burning. Had UTI treated by PCP 6 weeks ago. Then developed vaginal itching wand was given antifungal. Negative vaginitis swab. Now again with burning. U/A shows blood and leucocytes. Went off off vaginal estrogens. She reports vaginal discharge has been going on for 1 month and moderate in severity. She describes the vaginal discharge as burning. She reports vaginal discharge occurs throughout the day. She reports condition is better with nothing. She reports condition is worse with using the restroom. Problem was previously treated. She was seen and treated by other for this condition. She reports associated signs and symptoms are . The previous information was entered/completed by Katarzyna Buck or Parent/Guardian Calli Santiago MD [address] [facility], [address], [place], [address], [facility], [facility] 05/24/2020 14:18:42 OBGyn Episode No OBEpisode recorded.
--- OUTSIDE RECORDS SUMMARY | 2024-08-17 14:35 | XMS_ITS | Clinical Summary ---
Author Organization [facility] Address [address] [place] [address] Care Team Providers Care Profile Trimmer Name Role Phone Unavailable Primary Care Provider Unavailabl e Allergies Active Allergy Reactions Criticality Noted Date Comments Hydrocodone 12/18/2021 Medications Medication Sig Dispensed Refills Start Date End Date Status atenolol (TENORMIN) tablet 50 mg Take 50 mg by mouth daily. 0 Active ALPRAZolam (XANAX) 0.25 MG tablet Take 0.25 mg by mouth every night at bedtime as needed for anxiety. 0 Active aspirin EC 81 MG tablet Take 81 mg by mouth daily. 0 Active amoxicillin (AMOXIL) 500 MG tablet Take 4 tabs 1 hour prior to dental appointment 20 tablet 3 01/24/2022 Active EQ Pain Reliever 500 MG tablet Take 2 tablets (1,000 mg total) by mouth 3 (three) times a day. 0 01/12/2022 Active atorvastatin (LIPITOR) tablet 40 mg Take 1 tablet (40 mg total) by mouth daily. 0 02/13/2022 Active BENAZEPRIL HCL PO 0 Active gabapentin (NEURONTIN) 300 MG capsule TAKE 1 CAPSULE BY MOUTH IN THE EVENING 0 01/12/2022 Active albuterol 108 (90 Base) MCG/ACT inhaler INHALE 2 PUFFS BY MOUTH EVERY 4 HOURS NEEDED FOR SHORTNESS OF BREATH 0 04/04/2022 Active hydroCHLOROthiazide (HYDRODIURIL) tablet 25 mg Take 1 tablet (25 mg total) by mouth daily. 0 05/06/2022 Active NIFEdipine ER (ADALAT CC) 60 MG 24 hr tablet Take 1 tablet (60 mg total) by mouth daily. 0 05/01/2022 Active oseltamivir (TAMIFLU) 75 MG capsule TAKE 1 CAPSULE BY MOUTH TWICE DAILY FOR 5 DAYS FOR THE FLU 0 04/04/2022 Active traMADol (ULTRAM) 50 MG tablet Take 1 tab every 8 hours as needed for pain 60 tablet 0 05/28/2022 Active Family History Medical History Relation Name Comments Hypertension Mother Relation Name Status Comments Mother Social History Tobacco Use Types Packs/Day Years Used Date Smoking Tobacco: Former Smokeless Tobacco: Never Comments:quit 1976 Alcohol Use Standard Drinks/Week Comments Yes 0 (1 standard drink = 0.6 oz pur e alcohol) wine Sex and Gender Information Value Date Recorded Sex Assigned at Not on file Gender Identity Not on file Sexual Orientation Not on file Job Start Date Occupation Industry Not on file Not on file Not on file Last Filed Vital Signs Vital Sign Reading Time Taken Comments Blood Pressure - - Pulse - - Temperature - - Respiratory Rate - - Oxygen Saturation - - Inhaled Oxygen Concentration - - Weight 86.2 kg (190 lb) 12/18/2021 10:30 AM EDT Height 177.8 cm (5' 10 ) 12/18/2021 10:30 AM EDT Body Mass Index 27.26 12/18/2021 10:30 AM EDT Plan of Treatment Health Maintenance Due Date Last Done Comments Hepatitis C Screening 1950 COVID-19 Vaccine (#1) 1950 Depression Screening 1960 Preventative Health Evaluation 01/26/1966 DTap / Tdap / Td (1 - Tdap) 01/26/1967 Shingrix-Zoster Vaccine (1 of 2) 01/26/1998 Fall Risk Assessment 01/26/2013 Osteoporosis Screening (DEXA Scan) 01/26/2013 Pneumococcal Vaccine (1 of 1 - PCV) 01/26/2013 RSV Adult > 60+ Yrs or Pregn ant (1 - 1-dose 75+ series) 01/26/2023 Influenza Vaccine (#1) 2024 Hepatitis B Vaccines Aged Out No long er eligible based on patient's age to complete this topic RSV Ped < 20 months Aged Out No longe r eligible based on patient's age to complete this topic Katarzyna Buck Personal/Family Self 1950 [facility] [address] [place] [address]
== END 2024-08-17 13:16 | disposition home or self-care (01) ==
LOC: HO.HOS 12:37
PROVIDERS: PCP Nurse Practitioner Family; Visit Provider Orthopaedic Surgery
DX: M25.811 Other specified joint disorders, right shoulder (principal); M25.511 Pain in right shoulder
CPT/HCPCS: 20610; 99203

== ENCOUNTER → 2024-08-17 12:40 | Outpatient (BNV) | payer MEDICARE, SELFPAY | PROVIDERS: Visit Provider Radiology Diagnostic Radiology | DX: M25.511 Pain in right shoulder (principal) | CPT/HCPCS: 73030 ==

== ENCOUNTER 2025-01-05 12:28 | Outpatient (REF) | payer MEDICARE, SELFPAY ==
--- NOTE | ~2025-01-05 | XR_ITS ---
EXAMINATION: XR PELVIS CLINICAL INFORMATION: M25.551 - Pain in right hip COMPARISON: None available. TECHNIQUE: AP view of the pelvis and two-view left hip. FINDINGS: Total hip replacement has been performed on the left. Acetabular cup is secured with 2 screws. The femoral component makes broad cortical contact . There is cerclage wire just distal to the lesser trochanter. There is no significant periprosthetic lucency. Right hip joint demonstrates moderate axial joint space narrowing and chondrocalcinosis in the superior joint. There is diffuse osteopenia. There is a circular suture line in the pelvis, left of midline likely related to bowel. 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 Total hip arthroplasty of the left Electronically signed by: Rodolfo Daniels MD 01/05/2025 01:51 PM EDT
--- NOTE | ~2025-01-05 | XR_ITS ---
EXAMINATION: XR LUMBOSACRAL SPINE CLINICAL INFORMATION: M54.50 - Low back pain, unspecified COMPARISON: None available. TECHNIQUE: Three views of the lumbosacral spine. FINDINGS: There are 6 nonrib-bearing lumbar segments. There is moderate superior endplate compression fracture of T12. There is mild superior endplate compression fracture of L4. There is facet sclerosis and osteophytes between L3-4 thru L5-6. Disc spaces are preserved. L6-S1 demonstrates grade 1 anterolisthesis. XR/XR lumbar spine 2-3V IMPRESSION: 6 nonrib-bearing lumbar segments. Moderate superior endplate compression fracture of T12 and mild superior endplate compression fracture of L4. L6-S1 demonstrates grade 1 anterolisthesis. 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 Electronically signed by: Rodolfo Daniels MD 01/05/2025 01:54 PM EDT
== END 2025-01-05 12:29 | disposition home or self-care (01) ==
LOC: HO.HOSX 12:28
PROVIDERS: Visit Provider Orthopaedic Surgery
DX: M51.362 Other intervertebral disc degeneration, lumbar region with discogenic back pain and lower extremity pain (principal); M25.552 Pain in left hip; M25.551 Pain in right hip; F40.240 Claustrophobia; Z96.642 Presence of left artificial hip joint
CPT/HCPCS: 72100; 72170; 99212

== ENCOUNTER 2025-01-05 12:28 | Outpatient (AMB) | payer MEDICARE, SELFPAY ==
--- NOTE | 2025-01-05 12:44 | A.OFFVIS_ITS ---
Intake Visit Reasons: New prob-Lt hip pain, Low back pain Intake Note: Katarzyna is a 74 year old female who presents with complaints of low back pain which radiates down the lateral aspect of her left leg to her left foot. She does not recall any traumatic event preceding the onset of her pain. The patient states that she is claustrophobic and does not wish to get an MRI. She has not been seen by a back specialist in the past. She did undergo left total hip replacement surgery in January of 2022. She denies any groin pain. She denies any fevers or chills. Allergies hydrocodone Allergy (Verified 01/05/25 12:48) swelling of the face Medication List - Last Reconciled 01/05/25 by Javi Tello MD atorvastatin 40 mg PO DAILY lisinopril 10 mg PO QAM metoprolol tartrate 50 mg PO BID PFSH Surgical History History of total left hip replacement (~01/2022) Social History Alcohol intake: current Alcohol intake frequency: 3 or more drinks per day Alcohol type: wine Patient Tobacco Use Status: Never used Tobacco Current occupational status: retired Current occupation: right hand dominant Physical Exam Const Other: Well-nourished well-developed very friendly female awake alert and oriented x3 in no acute distress Back/Spine/Pelvis Other: Low back examination shows left-sided paraspinal muscle tenderness, pain with range of motion, positive straight leg raise on the left at 70 degrees Extrem Other: Left hip examination shows that the surgical incision is well healed, no erythema, full range of motion when compared to her right hip, minimal di scomfort with range of motion Results Reviewed Results Reviewed: X-rays of the patient's left hip show a total hip arthroplasty in good position with no signs of loosening, no acute bony abnormalities X-rays of the patient's lumbar spine show degenerative disc disease, no acute bony abnormalities Assessment & Plan Assessment & Plan (1) Low back pain: Code(s): M54.50 - Low back pain, unspecified Category: Medical Plan Ms. Buck presents with low back pain which radiates into her left leg most likely due to lumbar stenosis or a disc herniation. I did recommend the patient get an MRI of her lumbar spine for further evaluation. She does not wish to get an MRI at this point because of her claustrophobia. I also recommended that the patient be evaluated by a back specialist. She wishes to hold off on that appointment for now. She will continue with her activity modifications. She will contact me if she chooses to be evaluated by our back specialist here at [facility]. Otherwise she will follow up on an as-needed basis should her symptoms worsen in any way. I spent 22 minutes in reviewing the patient's records and imaging studies, seeing the patient and documenting in the medical record. Orders: Orders XR pelvis 1-2V Today M25.551 - Pain in right hip, M25.552 - Pain in left hip XR lumbar spine 2-3V Today M54.50 - Low back pain, unspecified Coding Level of Care Code Est Pt Level 3 (37070) Complex EM visit Add On G2211 Diagnoses Low back pain M54.50
--- OUTSIDE RECORDS SUMMARY | 2025-01-05 13:14 | XMS_ITS | Clinical Summary ---
Author Organization [facility] Facility Address [address] [address] Care Team Providers Care Aerospace Manager Name Role Phone Mary Ocampo Primary Care Provider [phone] Allergies Active Allergy Reactions Criticality Noted Date [...] Due Date Last Done Comments Pneumococcal Vaccine: 50+ Ye ars (1 of 1 - PCV) 01/26/1998 Influenza Vaccine (#1) 2025 Hepatitis B Vaccine Aged Out No longe r eligible based on patient's age to complete this topic Insurance #[address] [place] [address] Medicare [facility] Medicare [facility] Care Teams Aerospace Manager Relationship Specialty Start Date End Date Mary Ocampo [address] [place] [id number] PCP - General 05/22/22
--- OUTSIDE RECORDS SUMMARY | 2025-01-05 13:14 | XMS_ITS | Clinical Summary ---
Author Organization [facility] it Address [address] [place] [address] Care Team Providers Care Job Placement Counselor Name Role Phone Mary Ocampo MD Primary Care Provider [phone] Surgical History Surgery Date Site/Laterality Comments OTHER SURGICAL HISTORY 01/10/2022 Left PROCEDURE: [place] UNLISTED PROCEDURE PELVIS/HIP JOINT; COMMENT: at [facility]. Medical History Medical History Date Comments Primary [...] 2) 01/26/1998 Cholesterol Screening (Lipid Panel) 04/24/2022 Falls Risk Assessment 04/24/2022 Hepatitis C Screening 04/24/2022 Osteoporosis Screening (Bone Density Screening) 04/24/2022 Social Influencers of Health Screening 04/24/2022 RSV Immunization Adult Patie nts (1 - 1-dose 75+ series) 01/26/2023 Hypertension/CHF/CAD Annual BMP Blood Test 06/09/2023 COVID-19 Vaccine (1 - 2023-2 5 season) 2024 Depression Screening 05/11/2024 Influenza Vaccine (#1) 2025 HIB Vaccines Aged Out No longer [...] Documents on File Type Date Recorded Patient Doctor Of Optometry Expl anation Health Care Decision (hx) 01/14/2022 AD OLEA DIRECTIVE Health Care Decision (hx) 01/14/2022 AD OLEA DIRECTIVE Care Teams Job Placement Counselor Relationship Specialty Start Date End Date Mary Ocampo MD [address] [place] [phone] PCP - General 02/11/22
--- OUTSIDE RECORDS SUMMARY | 2025-01-05 13:14 | XMS_ITS | Clinical Summary ---
Author Organization [facility] Address [address] [place] [address] Care Team Providers Care Lumber Grader Name Role Phone Unavailable Primary Care Provider [...] 1-dose 75+ series) 01/26/2023 Influenza Vaccine (#1) 2025 Hepatitis B Vaccines Aged Out No long er eligible based on patient's age to complete this topic RSV Ped < 20 months Aged Out No longe r eligible based on patient's age to complete this topic Katarzyna Buck Personal/Family Self [address] [facility] [address] [place] [address]
--- OUTSIDE RECORDS SUMMARY | 2025-01-05 13:14 | XMS_ITS ---
Author Name [facility] Organization Unknown History of Medication Use Medication Directions Dispensed Refills Start Date End Date Stat us bupivacaine HCl 0.5 % (5 mg/mL) injection solution Take 2 mL by injection route. 03/19/2023 active alprazolam 0.5 mg tablet Take 1 tablet 3 times a day by oral route. 03/19/2023 completed atenolol 50 mg tablet TAKE 1 TABLET BY MOUTH EVERY DAY 03/19/2023 active gabapentin 300 mg capsule TAKE 1 CAPSULE BY MOUTH IN THE EVENING 03/19/2023 active methocarbamol 750 mg tablet TAKE 1 TABLET BY MOUTH THREE TIMES DAILY 03/19/2023 active metronidazole 500 mg tablet TAKE 1 TABLET BY MOOUT 3 TIMES A DAY THE DAY BEFORE SURGERY 1PM,2PM, AND 9PM 03/19/2023 completed neomycin 500 mg tablet TAKE 1 TABLET BY MOUTH 3 TIMES A DAY THE DAY BEFORE SURGERY 1PM,2PM,AND 9PM 03/19/2023 completed oseltamivir 75 mg capsule TAKE 1 CAPSULE BY MOUTH TWICE DAILY FOR 5 DAYS FOR THE FLU 03/19/2023 active tramadol 50 mg tablet TAKE 1 TABLET BY MOUTH EVERY 8 HOURS NEEDED FOR PAIN 03/19/2023 active Allergies Allergen Reaction Severity Comment Documented Date Source Statu s HYDROCODONE ENS_AONECT Problems Problem Status Onset Date Problem Type Date of Resoluti on Source Impingement syndrome of left shoulder region active 2023-03-19 ProblemAct ENS_AON ECT Encounters Encounter Type Encounter Reason Primary Diagnosis Location Date Ambulatory [facility] 11/25/2022 Ambulatory [facility] 11/21/2022 Ambulatory [facility] 11/18/2022 Ambulatory [facility] 11/18/2022 Ambulatory [facility] 09/01/2022 Care Team Organization Name Specialty Phone Email Start Date End Da te [facility] 04/10/2022 12/28/2023
== END 2025-01-05 13:08 | disposition home or self-care (01) ==
LOC: HO.HOS 12:29
PROVIDERS: Visit Provider Orthopaedic Surgery
DX: M54.50 Low back pain, unspecified (principal)
CPT/HCPCS: 99213; G2211

== ENCOUNTER → 2025-01-05 12:38 | Outpatient (BNV) | payer MEDICARE, SELFPAY | PROVIDERS: Visit Provider Radiology Diagnostic Radiology | DX: S22.080A Wedge compression fracture of T11-T12 vertebra, initial encounter for closed fracture (principal); M16.11 Unilateral primary osteoarthritis, right hip | CPT/HCPCS: 72100; 72170 ==

== ENCOUNTER 2025-01-17 08:28 | Outpatient (REF) | payer MEDICARE, SELFPAY ==
--- OUTSIDE RECORDS SUMMARY | 2025-01-18 09:44 | XMS_ITS | Clinical Summary ---
Author Organization [facility] Facility Address [address] [address] Care Team Providers Care Deputy Assessor Name Role Phone Mary Ocampo Primary Care Provider [phone] Allergies Active Allergy Reactions Criticality Noted Date [...] age to complete this topic Insurance #[address] [place] [address] Medicare [facility] Medicare [facility] Care Teams Deputy Assessor Relationship Specialty Start Date End Date Mary Ocampo [address] [place] [address] PCP - General 05/22/22
--- OUTSIDE RECORDS SUMMARY | 2025-01-18 09:45 | XMS_ITS | Clinical Summary ---
Author Organization [facility] Address [address] [place] [address] Care Team Providers Care Family Services Coordinator Name Role Phone Unavailable Primary Care Provider [...] [facility] [address] [place] [address]
--- OUTSIDE RECORDS SUMMARY | 2025-01-18 09:45 | XMS_ITS | Clinical Summary ---
Author Organization [facility] it Address [address] [place] [address] Care Team Providers Care Quick Mixer Operator Name Role Phone Mary Ocampo MD Primary Care Provider [phone] Surgical History Surgery Date Site/Laterality Comments OTHER SURGICAL HISTORY 01/10/2022 Left PROCEDURE: [place] UNLISTED PROCEDURE PELVIS/HIP JOINT; COMMENT: at [facility]. 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
== END 2025-01-17 08:29 | disposition home or self-care (01) ==
LOC: HO.HOSX 08:28
PROVIDERS: Visit Provider Orthopaedic Surgery
DX: Z13.89 Encounter for screening for other disorder (principal)

== ENCOUNTER 2025-03-07 12:48 | Outpatient (AMB) | payer MEDICARE, SELFPAY ==
--- NOTE | 2025-03-07 12:54 | MHC.OFFVIS ---
Vital Signs 03/07/25 12:57 Height 5 ft 10 in Weight 190 lb BMI 27.3 Intake Visit Reasons: New Problem- Left Shoulder Intake Note: Katarzyna is a 75 year old female who presents with complaints of intermittent pain along the lateral aspect of her left shoulder. The patient did have a cortisone injection given into her right shoulder earlier this year. She got very good relief from that injection. She reports minimal discomfort in her right shoulder today. She describes her left shoulder pain as sharp in nature. She has tried Tylenol and anti-inflammatory medicines which gave her minimal relief. She has tried physical therapy exercises which aggravated her pain. She wishes to hold off on surgery if at all possible. Allergies hydrocodone Allergy (Verified 01/05/25 12:48) swelling of the face Medication List - Last Reconciled 03/07/25 by Javi Tello MD atorvastatin 40 mg PO DAILY lisinopril 10 mg PO QAM metoprolol tartrate 50 mg PO BID [facility] Surgical History History of total left hip replacement (~01/2022) Social History Alcohol intake: current Alcohol intake frequency: 3 or more drinks per day Alcohol type: wine Patient Tobacco Use Status: Never used Tobacco Current occupational status: retired Current occupation: right hand dominant Physical Exam Vital Signs: BMI result Body Mass Index 27.3 Const Other: Well-nourished well-developed very friendly female awake alert and oriented x3 in no acute distress Extrem Other: Left shoulder examination shows full range of motion when compared to her right shoulder, 4+ out of 5 strength with supraspinatus testing, positive impingement signs, no instability Office Procedures AMB Joint Injection/Aspiration Joint Injection/Aspiration Primary Site: left shoulder Prep: site was prepped using aseptic technique Injected: 40 mg of, DepoMedrol, with 4 mL of and 1% plain lidocaine Procedure: The patient tolerated the procedure well Coding 86160 - Large joint Procedure code (CPT) selection complete Assessment & Plan Assessment & Plan (1) Impingement syndrome of left shoulder: Code(s): M75.42 - Impingement syndrome of left shoulder Category: Medical Plan Ms. Buck presents with left shoulder pain due to impingement syndrome. The risks and benefits of a left shoulder cortisone injection were discussed at length with the patient. The patient wished to proceed. She tolerated the injection well. She will continue with her home stretching program to prevent stiffness. She will contact me prior to her follow-up appointment in 3 months should any questions or concerns arise. Feel free to call me at any time should questions regarding her orthopedic management arise. I spent 22 minutes in reviewing the patient's records and imaging studies, seeing the patient and documenting in the medical record. Orders: Orders AMB Joint Injection/Aspiration Today M75.42 - Impingement syndrome of left shoulder Coding Level of Care Code Est Pt Level 3 (93965) Complex EM visit Add On G2211 Diagnoses Impingement syndrome of left shoulder M75.42 CPT Codes Coding - 31947 Large joint: 89436 - Large joint ([id number])
[2025-03-07 12:57] VITALS: BMI 27.3
--- OUTSIDE RECORDS SUMMARY | 2025-03-07 16:09 | XMS_ITS | Clinical Summary ---
Author Organization [facility] it Address [address] [place] [address] Care Team Providers Care Information Lead Name Role Phone Mary Ocampo MD Primary Care Provider [phone] Surgical History Surgery Date Site/Laterality Comments OTHER SURGICAL HISTORY 01/10/2022 Left PROCEDURE: [place] UNLISTED PROCEDURE PELVIS/HIP JOINT; COMMENT: at [facility]. 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
--- OUTSIDE RECORDS SUMMARY | 2025-03-07 16:09 | XMS_ITS | Clinical Summary ---
Author Organization [facility] Facility Address [address] [address] Care Team Providers Care Washing And Screening Plant Supervisor Name Role Phone Mary Ocampo Primary Care Provider [phone] Allergies Active Allergy Reactions Criticality Noted Date [...] age to complete this topic Insurance #[address] [place] [address] Medicare [facility] Medicare [facility] Care Teams Washing And Screening Plant Supervisor Relationship Specialty Start Date End Date Mary Ocampo [address] [place] [phone] PCP - General 05/22/22
--- OUTSIDE RECORDS SUMMARY | 2025-03-07 16:09 | XMS_ITS | Clinical Summary ---
Author Organization [facility] Address [address] [place] [address] Care Team Providers Care Camp Maintenance Supervisor Name Role Phone Unavailable Primary Care Provider [...] this topic Katarzyna Buck Personal/Family Self [address] [facility] [address] [place] [address]
--- OUTSIDE RECORDS SUMMARY | 2025-03-07 16:09 | XMS_ITS | Data Portability ---
Author Organization [facility] Kaye [facility] Address [address] [place] [address] Care Team Providers Care Foreign Correspondent Name Role Phone VENKAT LI Primary Care Provider VENKAT LI Primary Care Provider [phone] Assessment Encounter Date Assessment Date Assessment LastModified [...] findings at length with the patient today. We discussed the nature and etiology of this problem along with current treatment options. We discussed the expected course and outcomes and what to expect. We also discussed risks and benefits. All of their questions were answered today, and there was exhibited understanding and comprehension of all that was discussed. Time Spent: 10 minutes were spent reviewing previous imaging and charting. 10 minutes were spent obtaining patient history. 5 minutes were spent on physical exam. 5minutes were spent explaining diagnosis and assessment. Today's [...] findings at length with the patient today. We discussed the nature and etiology of this problem along with current treatment options. We discussed the expected course and outcomes and what to expect. We also discussed risks and benefits. All of their questions were answered today, and there was exhibited understanding and comprehension of all that was discussed. Time Spent: 10 minutes were spent reviewing previous imaging and charting. 10 minutes were spent obtaining patient history. 5 minutes were spent on physical exam. 5minutes were spent explaining diagnosis and assessment. Today's [...] 2 or more view 2022 [facility], [address], [place] [address], [place], [address], 12:25:37 Medication Orders Kenalog 40 mg/mL suspension for injection [address]/[facility], [address] [place], [address], 3 15:47:01 lidocaine (PF) 10 mg/mL (1 %) injection solution [address], [address] [place], [address], 3 15:47:03 bupivacaine HCl 0.5 % (5 mg/mL) injection solution [address], [address] [place], [address], 3 15:47:05 Patient TargetsNo targets recorded. Patient Instructions Encounter Date Encounter Id Patient Instructions Last Modified By Organization Details Last Modified Time 03/19/2023 [id number] You have been provided with a cortisone [...] hours following the injection. This is called holden swanson . To help minimize the chances of [...] Time Impingement syndrome of left shoulder region [id number] 04 Active 2022 KAYA FRANCIS PA-C [address], [place], [address], [place] [facility] 3 12:06:38 Problem Notes None recorded. Procedures Surgical History Date Name Laterality Status Provider Name and Address Organization Details Recorded Time 03/19/20 23 Shoulder Joint/Bursa Asp & Inj completed KAYA FRANCIS PA-C [address], [place], [address], [place] [facility] 03/19/2023 12:05:39 Hysterectomy completed Nina Piedra [facility] 11/21/2022 14:53:28 total replacement of hip completed Nina Piedra [facility] 11/21/2022 14:53:34 Gallbladder Surgery completed Nina Piedra [facility] 11/21/2022 14:53:41 excision of bunion completed Nina Piedra [facility] 11/21/2022 14:53:46 Imaging Results None recorded. Procedure Notes None recorded. Medical Equipment None Reported. Allergies Allergen ID Allergen Name Allergen Category Reaction Reaction Severity Criticality Documentation Date Start Date Code Code System Note Provider Name and Address Organization Details Recorded Time 6224 hydrocodo ne Not available Not available Not available Not available 11/21/2022 5489 RxNorm Nina Lastrell [facility], [facility], P 14:50:35 Medications Name Sig Start Date Stop Date Status Note LastModified by Organization Details LastModified Time amoxicillin 500 mg capsule TAKE 4 TABLETS ONE HOUR PRIOR TO DENTAL PROCEDURE active Not Available Not Available No t Available atorvastati n 40 mg tablet TAKE 1 TABLET BY MOUTH EVERY DAY active Not Available Not Available No t Available pravastatin 40 mg tablet Take 40 mg by mouth daily. 02/26 completed Not Available Not Available Not Available amiodarone 200 mg tablet TAKE 1 [...] Available aspirin 81 mg tablet,mary yed release Take 81 mg by mouth daily. active Not Available Not Available No t Available tramadol 50 mg tablet TAKE 1 [...] Available Not Available alprazolam 0.25 mg tablet Take 0.25 mg by mouth every night at bedtime as needed for anxiety. active Not Available Not Available No t Available methocarbam ol 750 mg tablet TAKE 1 TABLET BY MOUTH THREE TIMES DAILY 03/19 completed Not Available Not Available Not Available methylpredn isolone acetate 40 mg/mL suspension for injection 05/28 completed Not Available Not Available Not Available [...] Available Not Available atenolol 50 mg tablet Take 50 mg by mouth daily. active Not Available Not Available No t Available Pain Reliever (acetaminop hen) 500 mg [...] Not Available Vitals Date Recorded Body height Body mass index (BMI) Body weight Provider Name and Address Organization Details Last Updated DateTime 11/21/2022 177.8 cm 27.3 kg/m2 [address]4360.[address] [facility] 11/21/2022 14:52:59 Date Recorded Body height Provider Name an d Address Organization Details Last Updated DateTime 03/19/[address]23 [address] [facility] 03/19/2023 11:29:09 Social History None recorded. Functional Status Question Answer Note LastModified by Organizat ion Details LastModified Time How many times per week do you consume alcohol? Less than 1 time per week [email or web address] Information not available 11/21/2022 Do you use any illicit or recreational drugs? No [email or web address] Information not available 11/21/2022 What is your level of alcohol consumption? Occasional [email or web address] Information not available 11/21/2022 Mental Status None recorded. Family History Relationship Description Onset Age of this Age Resolved Age Notes LastModified by Organization Details LastModified Time Mother Hypertensive disorder [email or web address] Not available 11/21 14:53:14 Medical History Condition Response Coronary Artery Disease N Gout N Hyperthyroidism N Blood Transfusion N MRSA N Emphysema N COPD N Depression N Hypothyroidism N Pacemaker N Vascular Disease N Gastrointestinal Disease N Anxiety Disorder N Autoimmune disease N Arthritis N Cancer N Stroke N High Cholesterol N Neurologic Disorder N Liver Disease N Organ Transplant N Arrhythmia N Rheumatoid Arthritis N Fibromyalgia N Kidney Disease N Allergies/Hayfever N Adverse Reaction to Anesthesia N Thyroid Problems N Anemia N Brain Injury N Heart Attack (ID) N Osteopenia N Diabetes N Bleeding Disorder [...] Diagnosis SNOMED-CT Code Diagnosis ICD10 Code Diagnosis IMO Codes Diagnosis Note [id number] COREEN DIAMOND [address] [facility] [address] [place] [address] 11/21/2022 14:44:21 11/21/2022 15:17:37 Follow-up visit [id number] COREEN DIAMOND [address] [facility] [address] [place] [address] 03/19/2023 11:08:33 03/19/2023 12:03:45 Pain of left shoulder joint [id number] M25.512 Impingemen t syndrome of left shoulder region [id number] 24860 M75.42 Health Concerns Section Related Observation LastModified by Organization Detai ls LastModified Time None Recorded Concern Status LastModified by Organization Details LastModified Time None Recorded Advance Directives Directive None Recorded Payers Insurance Date Sequence Insurance Name Policy Number Policy Moreno Covered Member ID Moreno Member ID Guarantor Name 04/20/2023 1 MEDICARE B-[place]: [employer] Katarzyna Buck [id number] Katarzyna Buck 04/20/2023 2 [facility] Katarzyna Buck [id number] Katarzyna Buck Notes Date Note Type Note [...] And been recuperating gradually. KAYA FRANCIS PA-C [address] [address], [place], [address], [place] [facility] 11/25/2022 07:47:45 03/19/2023 text/html Very pleasant 73-year-old female jetav-evia-waboyxdc chief complaint left shoulder pain. Ongoing exacerbation [...] No acute bony abnormality. KAYA FRANCIS PA-C [address], [place], [address], [place] [facility] 03/19/2023 12:25:31 OBGyn Episode No OBEpisode recorded.
== END 2025-03-07 13:17 | disposition home or self-care (01) ==
PROVIDERS: Visit Provider Orthopaedic Surgery
DX: M75.42 Impingement syndrome of left shoulder (principal)
CPT/HCPCS: 20610; 99213

== ENCOUNTER → 2025-03-07 12:48 | Outpatient (BNVA) | payer MEDICARE, SELFPAY | PROVIDERS: Visit Provider Orthopaedic Surgery | DX: M75.42 Impingement syndrome of left shoulder (principal); M25.512 Pain in left shoulder | CPT/HCPCS: 20610; 99212; J1010; J2003 ==

== ENCOUNTER 2025-04-19 08:47 | Outpatient (AMB) | payer MEDICARE, SELFPAY ==
--- NOTE | 2025-04-19 08:51 | MHC.OFFVIS ---
Vital Signs 04/19/25 08:55 Height 5 ft 10 in Weight 190 lb BMI 27.3 Intake Visit Reasons: OV: neck pain, wants MRI Intake Note: Katarzyna is a 75 year old female who presents with complaints of progressively worsening low back pain which radiates down to her left hip and lower extremity. Her symptoms have gotten worse over the last few months in spite of continued non operative treatments. Allergies hydrocodone Allergy (Verified 01/05/25 12:48) swelling of the face Medication List - Last Reconciled 04/19/25 by Javi Tello MD atorvastatin 40 mg PO DAILY lisinopril 10 mg PO QAM metoprolol tartrate 50 mg PO BID PFSH Surgical History History of total left hip replacement (~01/2022) Social History Alcohol intake: current Alcohol intake frequency: 3 or more drinks per day Alcohol type: wine Patient Tobacco Use Status: Never used Tobacco Current occupational status: retired Current occupation: right hand dominant Physical Exam Vital Signs: BMI result Body Mass Index 27.3 Back/Spine/Pelvis Other: Low back examination shows pain with range of motion, positive straight leg raise test on the left at 70 degrees Assessment & Plan Assessment & Plan (1) Low back pain radiating to left lower extremity: Code(s): M54.50 - Low back pain, unspecified; M79.605 - Pain in left leg Category: Medical Plan Ms. Buck presents with progressively worsening low back pain which radiates into her left leg possibly due to lumbar stenosis versus a disc herniation. Thus, I will send the patient for an MRI of her lumbar spine for further evaluation. The patient states that she already has an appointment with a back specialist in July. She will follow up for that appointment as scheduled. Orders: Orders MR lumbar spine wo con 04/20/25 M54.50 - Low back pain, unspecified, M79.605 - Pain in left leg Coding Level of Care Code Est Pt Level 3 (43041) Complex visit Add On G2211 Diagnoses Low back pain radiating to left lower extremity M54.50; M79.605
[2025-04-19 08:55] VITALS: BMI 27.3
== END 2025-04-19 09:05 | disposition home or self-care (01) ==
PROVIDERS: Visit Provider Orthopaedic Surgery
DX: M54.50 Low back pain, unspecified (principal); M79.605 Pain in left leg
CPT/HCPCS: 99214; G2211

== ENCOUNTER → 2025-04-19 08:47 | Outpatient (BNVA) | payer MEDICARE, SELFPAY | PROVIDERS: Visit Provider Orthopaedic Surgery | DX: M54.50 Low back pain, unspecified (principal); M79.605 Pain in left leg; Z96.642 Presence of left artificial hip joint | CPT/HCPCS: 99212 ==